=== PATIENT | female | born 1985 | race Caucasian/White ===

== ENCOUNTER → 2023-02-18 15:21 | Outpatient (BNVA) | payer BC, SELFPAY | PROVIDERS: Visit Provider Physician Assistant Surgical ==

== ENCOUNTER 2023-03-25 08:19 | Outpatient (AMB) | payer BC, SELFPAY ==
--- NOTE | 2023-03-24 19:57 | MHC.OFFVISWM ---
Intake VS Expanded 03/24/23 20:00 Height 5 ft 3 in Weight 242 lb 6 oz BMI 42.9 Body Fat % 46.5 Body Fat Mass 112.6 Fat Free Mass 92.8 Visceral Fat Rating 13 Body Water Mass 92.8 Basal Metabolic Rate/Score 1,846 Intake Visit Reasons: TV [employer] [facility] BMI 42.9 Allergies No Known Allergies Allergy (Verified 03/25/23 10:07) Medication List - Last Reconciled 03/25/23 by Oscar Yeh MD benazepril-hydrochlorothiazide 20-25 mg 1 tab PO DAILY folic acid 1 mg PO DAILY methotrexate sodium mg PO sertraline 50 mg PO DAILY HPI TV [employer] SWL BMI 42.9 HPI Details Start time: 10.00am, End time: 10.48am. An additional 15 minutes were used at a different part of the day to complete this note and review patient's records. ?I spent 48 minutes speaking with the patient on the phone plus an additional 15 minutes reviewing and updating records for a total of 63 minutes HPI Comments History of Present Illness Details Previous weight loss efforts: Weight Watchers, counting calories, [place] Wakes up: 5am, Sleeps: 10pm Breakfast: 6.30am (eggs, toast and schaffer) Lunch: 1pm (chicken sandwich with fries) Dinner: 5pm-6pm (chicken, pork chops, steak with pasta) Snacks: 7-8pm (chips or cakes) Exercise: Gym x1/wk Fluids: Coffee (3 cups/day with flavored creamer), tea: none, soda: regular coke (24oz/day), juice: none, ETOH: none PFSH Medical History (Updated 03/25/23 @ 10:10 by Oscar Yeh MD) Rheumatoid arthritis Obstructive sleep apnea on CPAP Anxiety Depression Hypertension Morbid obesity Surgical History (Updated 02/18/23 @ 15:45 by Cailin Rubio CMA) Hx of section Family History (Updated 02/18/23 @ 15:47 by Cailin Rubio CMA) Paternal Uncle Cancer of pancreas Paternal Aunt Breast cancer Social History (Updated 02/18/23 @ 15:48 by Cailin Rubio CMA) Alcohol intake: current Alcohol intake frequency: holidays/special occasions only Alcohol type: wine and other Patient Tobacco Use Status: Never used Tobacco Physical Exam Vital Signs: BMI result Body Mass Index 42.9 Assessment & Plan Assessment & Plan (1) Hypertension: Code(s): I10 - Essential (primary) hypertension (2) Depression: Code(s): F32.A - Depression, unspecified (3) Anxiety: Code(s): F41.9 - Anxiety disorder, unspecified (4) Morbid obesity: Code(s): E66.01 - Morbid (severe) obesity due to excess calories Plan: 1.? Plan for lap sleeve gastrectomy. If diaphragmatic or ventral hernias are present at time of surgery, these will be repaired laparoscopically as well. Risks and complications were discussed in detail including possible conversion to an open procedure, anastomotic leak, bleeding requiring transfusion, small bowel obstruction, , DVT and pulmonary embolism, cardiac, or pulmonary complications, as terminal clerk complications such as anastomotic ulcer, insufficient weight loss and vitamin deficiencies. I emphasized the importance of close follow-up, adherence to instructions and good communication. 2. Nutritional counseling. Start with 2 CELEBRATE REBUILD protein (buy at [facility] [employer]) shakes (ONE scoop EACH in 8oz low fat unsweetened almond milk each) at 6am-8am and 9am-11am, 2 protein bars (CELEBRATE protein bars, buy at [facility] [employer] [facility]) at 12pm-2pm and 3pm-5pm, dinner at 6pm (8 forks of protein and 8 forks of salad/vegetables) AND one more protein bar after dinner at 8pm-10pm. So you do 2 protein shakes, 3 protein bars and one meal per day. Meal to include lean meat (beef, fish, pork, turkey, chicken), or egyptian yogurt, or egg whites, or beans with a salad with olive oil and fruits (berries, pears, apples, kiwi). Avoid salt, breads, potatoes, rice, pasta, desserts. 3. Each shake would be drunk slowly, like coffee in a period of 2 hours. 4. Cut each bar in 4 pieces and eat each piece in 30min ?to make each bar last 2 hours. 5. I emphasized the importance of measuring accurately the food portion and measure it when serving the food in plate 6. The meal portions include 8 full-size forks of meat and 8 full-size forks of salad. You always eat the meat portion but you can replace up to 4 forks for salad/vegetables with rice, potatoes or pasta, or a fruit ?if you like. The less you do it the better weight loss will be. 7. One full-size fork is what it can be scooped on the fork without falling aside and not what can be bit with the fork. Use regular forks like those you find in a typical restaurant. 8.? Please send me weight measurements as soon as possible and then once a week. Always include your diet and exercise plan. 9. Start treadmill with an incline of 2.0 and speed of 3.0. Increase incline by 1 every 3 min to a max incline of 8.0, stay 3min at 8.0 and then return to 2.0 and repeat same steps until calorie goal is met. Goal is to burn 2000 calories per week on exercise, which means either 300 calories daily, or 400 calories 5 days per week, or 500 calories 4 days per week, or 650 calories 3 days per week. 10. Alternatively purchase a stationary bike, elliptical or treadmill at home that can track calories. Let me know if you do so I can give you an exercise plan. 11.?It is important of avoiding and for at least 18 months postoperatively and has been discussed at the infosession. 12. Goal is to lose at least 1.5-2lbs per week 13. Goal to lose 10% of your weight before surgery, which is about 24lbs. Ultimate weight goal: 218lbs before surgery 14. Please follow the diet plan exactly without any change. If you don't like something about the plan or you feel hungry you need to communicate with me so I can help you revise the plan. You should not change the plan yourself. (5) Obstructive sleep apnea on CPAP: Code(s): G47.33 - Obstructive sleep apnea (adult) (pediatric) (6) Rheumatoid arthritis: Code(s): M06.9 - Rheumatoid arthritis, unspecified Orders: Orders IRON PROFILE 03/24/23 E66.01 - Morbid (severe) obesity due to excess calories Zinc 03/24/23 E66.01 - Morbid (severe) obesity due to excess calories Vitamin A 03/24/23 E66.01 - Morbid (severe) obesity due to excess calories Ferritin 03/24/23 E66.01 - Morbid (severe) obesity due to excess calories TSH reflex Free T4 03/24/23 E66. - Morbid (severe) obesity due to excess calories Vitamin D 25-OH Total 03/24/23 E66.01 - Morbid (severe) obesity due to excess calories Hemoglobin A1c 03/24/23 E66. - Morbid (severe) obesity due to excess calories ECG 12 lead EKG 03/24/23 E66. - Morbid (severe) obesity due to excess calories FL upper GI w air 03/24/23 E66.01 - Morbid (severe) obesity due to excess calories Insulin 03/24/23 E66. - Morbid (severe) obesity due to excess calories Lipid Panel 03/24/23 E66. - Morbid (severe) obesity due to excess calories Complete Blood Count Auto Diff 03/24/23 E66. - Morbid (severe) obesity due to excess calories Vitamin B12 and Folate 03/24/23 E66. - Morbid (severe) obesity due to excess calories Comprehensive Met. Panel 03/24/23 E66. - Morbid (severe) obesity due to excess calories Vitamin B1 03/24/23 E66. - Morbid (severe) obesity due to excess calories C Reactive Protein 03/24/23 E66.01 - Morbid (severe) obesity due to excess calories PTHI 03/24/23 E66.01 - Morbid (severe) obesity due to excess calories H Pylori Breath Test 03/24/23 E66. - Morbid (severe) obesity due to excess calories US abdomen comp w elastography 03/24/23 E66.01 - Morbid (severe) obesity due to excess calories XR chest 2V 03/24/23 E66.01 - Morbid (severe) obesity due to excess calories Referrals Behavioral Health Referral E66.01 - Morbid (severe) obesity due to excess calories Nutrition/Dietitian Referral E66.01 - Morbid (severe) obesity due to excess calories Telehealth Telehealth Location of provider rendering services: practice address Location of patient: address on file Patient Identification confirmed using: Name, : Yes Telehealth method: voice only Patient verbally consented to treatment: Yes Patient verbally consented to billing insurance company: Yes Patient informed of any privacy concerns related to visit: Yes Minutes spent on Phone/Video with Pt.: 63 Coding Level of Care Code Tele New Pt Level 5 (56168) Diagnoses Hypertension I10 Depression F32.A Anxiety F41.9 Morbid obesity E66.01 Obstructive sleep apnea on CPAP G47.33 Rheumatoid arthritis M06.9 Time Spent (min) 63
[2023-03-24 20:00] VITALS: BMI 42.9
== END 2023-03-25 10:49 | disposition home or self-care (01) ==
LOC: HO.HBS 08:19
PROVIDERS: PCP Nurse Practitioner Family; Visit Provider Surgery
DX: E66.01 Morbid (severe) obesity due to excess calories (principal); Z68.42 Body mass index [BMI] 45.0-49.9, adult; F32.A Depression, unspecified; F41.9 Anxiety disorder, unspecified; G47.33 Obstructive sleep apnea (adult) (pediatric); M06.9 Rheumatoid arthritis, unspecified
CPT/HCPCS: 99443

== ENCOUNTER → 2023-03-25 08:19 | Outpatient (BNVA) | payer BC, SELFPAY | PROVIDERS: PCP Nurse Practitioner Family; Visit Provider Surgery | DX: E66.01 Morbid (severe) obesity due to excess calories (principal) ==

== ENCOUNTER 2023-03-29 08:08 | Outpatient (REF) | payer BC, MEDICAID, SELFPAY ==
--- NOTE | ~2023-03-29 | XR_ITS ---
EXAMINATION: XR CHEST CLINICAL INFORMATION: Morbid obesity COMPARISON: None available. TECHNIQUE: 2 views of the chest were obtained. FINDINGS: No focal consolidation. No pneumothorax. Trachea is midline. Cardiac mediastinal silhouette is not enlarged.. Osseous structures are intact. Soft tissues are unremarkable. XR/XR chest 2V IMPRESSION: No acute cardiopulmonary process.
[2023-03-29 08:45] LABS: MANUAL DIFF FLAG NO
[2023-03-29 09:26] LABS: Basophils Percent Auto 0.6 % (0-2); Eosinophils Absolute Auto 0.1 X10*3/uL (0.0-0.4); Eosinophils Percent Auto 1.6 % (0-4); Hematocrit 40.1 % (37.0-47.0); Hemoglobin 12.6 g/dl (12.0-16.0); Imm Gran Abs Auto 0.02 X10*3/uL (0.00-0.03); Imm Gran Pct Auto 0.3 % (0.0-0.4); Lymphocytes Absolute Auto 1.4 X10*3/uL (1.2-4.9); Lymphocytes Percent Auto 21.9 % (20-40); Mean Corpuscular HGB Conc 31.4 g/dl (31.0-35.0); Mean Corpuscular Hemoglobin 26.7 pg (27.0-33.0); Mean Platelet Volume 9.6 fL (9.4-12.3); Monocytes Absolute Auto 0.4 X10*3/uL (0.1-1.2); Monocytes Percent Auto 5.9 % (2-11); Neutrophils Absolute Auto 4.3 x10*3/uL (2.0-8.3); Neutrophils Percent Auto 69.7 % (45-73); Platelet Count 345 X10*3/uL (160-400); Red Blood Count 4.72 X10*6/uL (4.20-5.50); White Blood Count 6.2 X10*3/uL (4.8-10.8)
[2023-03-29 10:23] LABS: Estimated Average Glucose 111 mg/dL; Hemoglobin A1c % 5.5 % (<6.0)
[2023-03-29 10:27] LABS: Folate > 20.0 ng/mL (> or = 4.0); Vitamin B12 639 pg/mL (200-900)
[2023-03-29 10:29] LABS: Alanine Aminotransferase 65 U/L (0-31); Albumin Level 4.1 g/dL (3.5-5.0); Alkaline Phosphatase 99 U/L (39-117); Aspartate Amino Transferase 31 U/L (5-31); Bilirubin Total 0.2 mg/dL (0.0-1.0); Blood Urea Nitrogen 13 mg/dL (9-16); C Reactive Protein 2.64 mg/dL (< or = 0.50); Calcium 9.4 mg/dL (8.4-10.2); Carbon Dioxide 24 mmol/L (22-29); Chloride 109 mmol/L (96-108); Cholesterol 180 mg/dL (<200); Estimated Glomerular Filt Rate > 60; Glucose Random 83 mg/dL (60-115); HDL Cholesterol 49 mg/dL (>40); Iron 42 mcg/dL (30-160); LDL Cholesterol Calculated 117 mg/dL (<100); Percent Iron Saturation 13 % (15-50); Potassium 3.9 mmol/L (3.3-5.1); Sodium 142 mmol/L (135-145); Total Iron Binding Capacity 314 mcg/dL (228-428); Total Protein 7.5 g/dL (6.5-8.0); Triglycerides 71 mg/dL (<150); Unsaturated Iron Binding 272 ug/dL
[2023-03-29 10:41] LABS: Anion Gap 13 (12-20)
[2023-03-29 10:53] LABS: Ferritin 73 ng/mL (10-122); TSH reflex Free T4 1.22 uIU/mL (0.32-4.0); Vitamin D 25-OH Total 32.6 ng/mL (>30)
[2023-03-29 10:57] LABS: Insulin 26 uU/mL (2-29)
[2023-03-31 16:33] LABS: Zinc 63 mcg/dL (60-130)
[2023-04-01 14:23] LABS: Calcium (PTHI) 9.4 mg/dL (8.6-10.2); PTHI 37 pg/mL (16-77)
[2023-04-02 00:53] LABS: Vitamin A 41 mcg/dL (38-98)
[2023-04-02 14:24] LABS: Vitamin B1 7 nmol/L (8-30)
== END 2023-03-29 08:09 | disposition home or self-care (01) ==
LOC: HO.XRAY 08:08
PROVIDERS: PCP Nurse Practitioner Family; Visit Provider Surgery
DX: E66.01 Morbid (severe) obesity due to excess calories (principal)
CPT/HCPCS: 36415; 71046; 80053; 80061; 82306; 82607; 82728; 82746; 83036; 83525; 83540; 83970; 84425; 84443; 84590; 84630; 85025; 86140

== ENCOUNTER → 2023-04-01 08:18 | Outpatient (REF) | payer BC, SELFPAY ==
--- NOTE | 2023-04-01 08:22 | ECG_ITS ---
Test Reason : e66.01 Blood Pressure : / mmHG Vent. Rate : 050 BPM Atrial Rate : 050 BPM P-R Int : 158 ms QRS Dur : 082 ms QT Int : 434 ms P-R-T Axes : 017 -08 015 degrees QTc Int : 395 ms Sinus bradycardia Minimal voltage criteria for LVH, may be normal variant ( R in aVL ) Borderline ECG No previous ECGs available Referred By: Oscar Yeh Electronically Signed By:DACIA CALIX MD
== END ==
LOC: HO.CARD 08:18
PROVIDERS: Visit Provider Surgery
DX: E66.01 Morbid (severe) obesity due to excess calories (principal)
CPT/HCPCS: 93005

== ENCOUNTER → 2023-04-09 09:49 | Outpatient (BNVA) | payer BC, SELFPAY | PROVIDERS: PCP Nurse Practitioner Family; Visit Provider Physician Assistant Surgical | DX: Z11.0 Encounter for screening for intestinal infectious diseases (principal) | CPT/HCPCS: 99211 ==

== ENCOUNTER 2023-04-09 14:48 | Outpatient (REF) | payer BC, MEDICAID, SELFPAY ==
[2023-04-10 15:30] LABS: H Pylori Breath Test Positive (Negative)
== END 2023-04-09 14:49 | disposition home or self-care (01) ==
LOC: HO.LNP 14:48
PROVIDERS: Visit Provider Surgery
DX: E66.01 Morbid (severe) obesity due to excess calories (principal)
CPT/HCPCS: 83013

== ENCOUNTER 2023-04-12 08:03 | Outpatient (AMB) | payer BC, SELFPAY ==
--- NOTE | 2023-04-12 09:34 | A.OFFVIS_ITS ---
Intake VS Expanded 04/12/23 09:43 Height 5 ft 3 in Weight 234 lb 8 oz BMI 41.5 Body Fat % 52.3 Body Fat Mass 122.8 Fat Free Mass 112 Visceral Fat Rating 15.8 Body Water % 37.1 Body Water Mass 87.1 Basal Metabolic Rate/Score 1,698 Intake Visit Reasons: TV Follow Up SWL - 1ST Allergies No Known Allergies Allergy (Verified 03/25/23 10:07) HPI TV Follow Up SWL - 1ST HPI Details Start time: 9.22am, End time: 9.52am ?I spent 25 minutes speaking with the patient on the phone plus an additional 5 minutes reviewing and updating records for a total of 30 minutes HPI Comments History of Present Illness Details Overall weight loss: 7.6lbs, or 3.14% TBWL 2 Celebrate Rebuild protein shakes (1 sc oop in 8oz almond milk), 3 Celebrate protein bars and a meal (8 forks of protein and 8 forks of salad or vegetables) Exercise: Gym x5/week for 400 calories doing treadmill (speed: 3.0mph, incline 2-8) PFSH Medical History (Updated 04/12/23 @ 09:30 by Oscar Yeh MD) Rheumatoid arthritis Obstructive sleep apnea on CPAP Anxiety Depression Hypertension Morbid obesity Surgical History (Updated 02/18/23 @ 15:45 by Cailin Rubio CMA) Hx of section Family History (Updated 02/18/23 @ 15:47 by Cailin Rubio CMA) Paternal Uncle Cancer of pancreas Paternal Aunt Breast cancer Social History (Updated 02/18/23 @ 15:48 by Cailin Rubio CMA) Alcohol intake: current Alcohol intake frequency: holidays/special occasions only Alcohol type: wine and other Patient Tobacco Use Status: Never used Tobacco Assessment & Plan Assessment & Plan (1) Morbid obesity: Code(s): E66.01 - Morbid (severe) obesity due to excess calories Plan: 1. Change nutritional plan to one Celebrate Rebuild shake (HALF scoop in 8oz almond milk), one Celebrate Rebuild protein shakes (1 scoop in 8oz almond milk), 3 Celebrate protein bars and a meal (8 forks of protein and 8 forks of salad or vegetables) 2. Exercise: Continue Gym x5/week for 400 calories doing treadmill (speed: 3.0mph, increase incline 4-10) 3. Continue to send me weight measurements weekly on Mondays 4. To be scheduled for EGD due to history of H pylori infection. The possibility of biopsies was discussed. Patient needs to avoid use of NSAIDs and aspirin for 1 week prior to EGD. Risks of perforation and? bleeding was discussed with the patient. This will be an outpatient procedure with IV sedation. Medications: New thiamine HCl (vitamin B1) 100 mg PO DAILY 30 tabs 2RF E51.9 - Thiamine deficiency, unspecified Telehealth Telehealth Location of provider rendering services: practice address Location of patient: address on file Patient Identification confirmed using: Name, : Yes Telehealth method: voice only Patient verbally consented to treatment: Yes Patient verbally consented to billing insurance company: Yes Patient informed of any privacy concerns related to visit: Yes Coding Level of Care Code Tele Est Pt Level 4 (24924) Diagnoses Morbid obesity E66.01 Time Spent (min) 30
[2023-04-12 09:43] VITALS: BMI 41.5
== END 2023-04-12 09:53 | disposition home or self-care (01) ==
LOC: HO.HBS 08:04
PROVIDERS: PCP Nurse Practitioner Family; Visit Provider Surgery
DX: E66.01 Morbid (severe) obesity due to excess calories (principal); Z68.41 Body mass index [BMI] 40.0-44.9, adult
CPT/HCPCS: 99443

== ENCOUNTER → 2023-04-12 08:03 | Outpatient (BNVA) | payer BC, SELFPAY | PROVIDERS: PCP Nurse Practitioner Family; Visit Provider Surgery ==

== ENCOUNTER 2023-04-15 10:05 | Outpatient (AMB) | payer BC, SELFPAY ==
--- NOTE | 2023-04-15 10:24 | MHC.AMNUTRGE ---
Intake Intake Visit Reasons: (OV) Initial Nutrition [facility] Allergies No Known Allergies Allergy (Verified 03/25/23 10:07) HPI Nutrition Presentation Reason for consult elevated BMI Diet Assmnt Details Celebrate rebuild and protein bars plan from surgeon- likes them dinner mainly has protein and veg and 2 kids, 15 and 10 , trying to be a good role model for her kids Exercise: 5x per week , takes her son with her 3x per week. treadmill routine from surgeon SWL online classes: completed, reviewed and scored well Dietary counseling reduction Who buys your food self Who prepares/cooks your food self Meal frequency regular: breakfast (3 eggs, 4 slices schaffer), lunch (fast food) and dinner and irregular: snacks (at night, sweets, chips) Lifestyle Eating out 4 or more times/week Food frequency Dairy: daily, Fruit: occasionally, Vegetables: occasionally, Grains/pasta/breads/cereal (carbs): daily, Meats/poultry/fish (protein): daily (tuna, minimal seafood ), Meat substitutes/nuts/seeds/legumes: daily, Processed foods/meats: several times weekly, Restaurants/fast foods: daily, Desserts/sweets: daily, Water: daily, Soda: daily, Juice: never and Coffee: daily Diagnosis Nutrition problem #1 overweight/obesity As related to (etiology) #1 excess energy intake and physical inactivity As evidenced by (sign/symptom) #1 high BMI Monitoring/Goals Nutrition problem monitoring total energy intake, level of knowledge/skill, total PRO intake and weight Outcome progress progressing Learning/Education Readiness to learn excellent Stages of change action Educational materials provided Yes Most Recent Diabetes Results: Cholesterol 180 mg/dL (<200) 03/29/23 HDL Cholesterol 49 mg/dL (>40) 03/29/23 Triglycerides 71 mg/dL (<150) 03/29/23 Creatinine 0.75 mg/dL (0.5-1.4) 03/29/23 Blood Urea Nitrogen 13 mg/dL (9-16) 03/29/23 Sodium 142 mmol/L (135-145) 03/29/23 Potassium 3.9 mmol/L (3.3-5.1) 03/29/23 Chloride 109 mmol/L (96-108) H 03/29/23 Carbon Dioxide 24 mmol/L (22-29) 03/29/23 Calcium 9.4 mg/dL (8.4-10.2) 03/29/23 AST 31 U/L (5-31) 03/29/23 ALT 65 U/L (0-31) H 03/29/23 Total Protein 7.5 g/dL (6.5-8.0) 03/29/23 Albumin 4.1 g/dL (3.5-5.0) 03/29/23 PFSH Medical History (Updated 04/12/23 @ 09:30 by Oscar Yeh MD) Rheumatoid arthritis Obstructive sleep apnea on CPAP Anxiety Depression Hypertension Morbid obesity Surgical History (Updated 02/18/23 @ 15:45 by Cailin Rubio CMA) Hx of section Family History (Updated 02/18/23 @ 15:47 by Cailin Rubio CMA) Paternal Uncle Cancer of pancreas Paternal Aunt Breast cancer Social History (Updated 02/18/23 @ 15:48 by Cailin Rubio CMA) Alcohol intake: current Alcohol intake frequency: holidays/special occasions only Alcohol type: wine and other Patient Tobacco Use Status: Never used Tobacco Assessment & Plan Assessment & Plan (1) Morbid obesity: Code(s): E66.01 - Morbid (severe) obesity due to excess calories Plan: pt is cleared from a nutrition standpoint Patient Instructions: Patient is cleared from a nutrition standpoint for bariatric surgery. Educational requirements have been completed. Reviewed vitamin supplementation and commitment to protein shake for several months post surgery. Encouraged communication with office as needed Coding Level of Care Code Nutr Indiv Intake (78969) Diagnoses Morbid obesity E66.01 Time Spent (min) 35
== END 2023-04-15 11:04 | disposition home or self-care (01) ==
PROVIDERS: PCP Nurse Practitioner Family; Visit Provider Dietitian, Registered
DX: E66.01 Morbid (severe) obesity due to excess calories (principal)

== ENCOUNTER → 2023-04-15 10:05 | Outpatient (BNVA) | payer BC, SELFPAY | PROVIDERS: PCP Nurse Practitioner Family; Visit Provider Dietitian, Registered | DX: E66.01 Morbid (severe) obesity due to excess calories (principal); Z71.3 Dietary counseling and surveillance | CPT/HCPCS: 97802 ==

== ENCOUNTER 2023-04-30 09:48 | Outpatient (REF) | payer BC, MEDICAID, SELFPAY ==
--- NOTE | ~2023-04-30 | US_ITS ---
EXAMINATION: US COMPLETE ABDOMEN WITH LIVER ELASTOGRAPHY CLINICAL INFORMATION: Obesity. COMPARISON: None available. TECHNIQUE: Real-time imaging of the abdominal viscera. Noninvasive ultrasound liver fibrosis assessment is performed using [place] ElastPQ point quantification shear wave elastography (2D-SWE) with a C5-2 MHz transducer. Multiple elastography samples are obtained. FINDINGS: PANCREAS: Normal. The visualized pancreatic head and body are normal in appearance. The remainder of the pancreas is obscured from visualization by the overlying bowel gas. ABDOMINAL AORTA: The proximal and distal aortic segments are normal in caliber. The mid segment is obscured by overlapping bowel gas. INFERIOR VENA CAVA: Visualized portions are normal. LIVER: The liver demonstrates normal contour and increased echogenicity. No focal lesion or intrahepatic biliary duct dilatation. The right lobe measures 19.4 cm in length. The left lobe measures 9.1 cm in length. Portal flow is towards the liver (hepatopetal). Shear wave liver elastography median stiffness is 1.83 m/s (reference: normal median stiffness is 1.3 m/s or less). IQR/median stiffness to assess sampling precision is 0.10 (reference: good quality data set is IQR/median stiffness of 0.15 or less). GALLBLADDER: Normal. The gallbladder is partially contracted, without evidence of stones, sludge, polyps, wall thickening or pericholecystic fluid. COMMON BILE DUCT: Normal in caliber measuring 0.5 cm in diameter. RIGHT KIDNEY: Normal. No hydronephrosis. No renal calculi or focal parenchymal lesions. The kidney measures 11.2 cm in maximum dimension. LEFT KIDNEY: Normal. No hydronephrosis. No renal calculi or focal parenchymal lesions. The kidney measures 11.2 cm in maximum dimension. SPLEEN: Normal. The spleen measures 12.7 cm in maximum dimension. FREE FLUID: None. US/US abdomen comp w elastography IMPRESSION: 1. There is generalized increase in hepatic echotexture, consistent with fatty infiltration or hepatocellular disease. Please correlate clinically. No focal hepatic mass or intrahepatic biliary dilatation is seen. 2. Liver elastography: Measurements are suggestive of compensated advanced chronic liver disease but need further test for confirmation. 3. Technically limited ultrasound examination of the pancreas and abdominal aorta. REFERENCE: Society of Radiologists in Ultrasound Liver Stiffness Thresholds (2020): LIVER STIFFNESS THRESHOLDS: *Liver Stiffness equal or less than 1.3 m/s: High probability of being normal. *Liver Stiffness less than 1.7 m/s: In the absence of other known clinical signs, rules out compensated advanced chronic liver disease. *Liver Stiffness 1.7-2.1 m/s: Suggestive of compensated advanced chronic liver disease but need further test for confirmation. *Liver Stiffness over 2.1 m/s: Rules in compensated advanced chronic liver disease. *Liver Stiffness over 2.4 m/s: Suggestive of clinically significant portal hypertension. QUALITY OF DATA SET: *IQR/Median value equal or less than 0.15 implies a quality data set. *IQR/Median value over 0.15 implies a poor quality data set. SIGNIFICANT CHANGE FROM PRIOR EXAM: Significant change if liver stiffness measurement is 10% or greater from prior exam. OTHER CONSIDERATIONS: The stage of liver fibrosis may be overestimated in the setting of acute hepatitis, liver inflammation, elevated liver function tests, hepatic vascular congestion, obstructive cholestasis, non-fasting state, and infiltrative diseases such as amyloidosis and lymphoma. In some patients with NAFLD, the liver stiffness thresholds for compensated advanced chronic liver disease may be lower. In causes other than viral hepatitis and NAFLD, liver stiffness thresholds are not well established.
== END 2023-04-30 09:49 | disposition home or self-care (01) ==
LOC: HO.US 09:48
PROVIDERS: PCP Nurse Practitioner Family; Visit Provider Surgery
DX: E66.01 Morbid (severe) obesity due to excess calories (principal)
CPT/HCPCS: 76705; 76981

== ENCOUNTER 2023-05-10 07:59 | Outpatient (AMB) | payer BC, SELFPAY ==
--- NOTE | 2023-05-10 09:18 | MHC.OFFVISWM ---
Intake VS Expanded 05/10/23 09:28 Height 5 ft 3 in Weight 224 lb 6 oz BMI 39.7 Body Fat % 51.2 Body Fat Mass 114.9 Fat Free Mass 109.6 Visceral Fat Rating 14.8 Body Water % 37.7 Body Water Mass 84.6 Basal Metabolic Rate/Score 1,649 Intake Visit Reasons: TV Follow Up SWL Allergies No Known Allergies Allergy (Verified 03/25/23 10:07) HPI TV Follow Up SWL HPI Details Start time: 9.10am, End time: 9.31am ?I spent 16 minutes speaking with the patient on the phone plus an additional 5 minutes reviewing and updating records for a total of 21 minutes HPI Comments History of Present Illness Details Overall weight loss: 17.8lbs, or 7.34% TBWL Is doing 1 Celebrate Rebuild protein shakes (1/2 scoop each in almond milk), another Celebrate Rebuild protein shake (1 scoop in almond milk), 3 Celebrate protein bars and one meal (8 forks of protein and 8 forks of salad or vegetables) Exercise: is doing treadmill x5/week for 480 calories (incline 4-10, speed: 3mph) [facility] Medical History (Updated 05/10/23 @ 09:24 by Oscar Yeh MD) Rheumatoid arthritis Obstructive sleep apnea on CPAP Anxiety Depression Hypertension Morbid obesity Surgical History (Updated 02/18/23 @ 15:45 by Cailin Rubio CMA) Hx of section Family History (Updated 02/18/23 @ 15:47 by Cailin Rubio CMA) Paternal Uncle Cancer of pancreas Paternal Aunt Breast cancer Social History (Updated 02/18/23 @ 15:48 by Cailin Rubio CMA) Alcohol intake: current Alcohol intake frequency: holidays/special occasions only Alcohol type: wine and other Patient Tobacco Use Status: Never used Tobacco Assessment & Plan Assessment & Plan (1) Obesity: Code(s): E66.9 - Obesity, unspecified Qualifiers: Obesity type: due to excess calories Obesity classification: adult class 2 (BMI 35 - 39.9) Serious obesity comorbidity presence: with serious comorbidity Body mass index: BMI 39.0-39.9 Qualified Code(s): E66.01 - Morbid (severe) obesity due to excess calories; Z68.39 - Body mass index [BMI] 39.0-39.9, adult Plan: 1. Change nutritional plan to 2 Celebrate Rebuild protein shakes (1/2 scoop each in almond milk), 3 Celebrate protein bars and one meal (8 forks of protein and 8 forks of salad or vegetables) 2. Exercise: continue treadmill x5/week for 480 calories (increase incline to 5-11, speed: 3mph) 3. Continue to send me weight measurements weekly on Mondays Telehealth Telehealth Location of provider rendering services: practice address Location of patient: address on file Patient Identification confirmed using: Name, : Yes Telehealth method: voice only Patient verbally consented to treatment: Yes Patient verbally consented to billing insurance company: Yes Patient informed of any privacy concerns related to visit: Yes Minutes spent on Phone/Video with Pt.: 21 Coding Level of Care Code Tele Est Pt Level 3 (81240) Diagnoses Class 2 severe obesity due to excess calories with serious comorbidity and body mass index (BMI) of 39.0 to 39.9 in adult E66.01; Z68.39 Obesity type: due to excess calories Obesity classification: adult class 2 (BMI 35 - 39.9) Serious obesity comorbidity presence: with serious comorbidity Body mass index: BMI 39.0-39.9 Time Spent (min) 21
[2023-05-10 09:28] VITALS: BMI 39.7
== END 2023-05-10 09:32 | disposition home or self-care (01) ==
LOC: HO.HBS 07:59
PROVIDERS: PCP Nurse Practitioner Family; Visit Provider Surgery
DX: E66.01 Morbid (severe) obesity due to excess calories (principal); Z68.39 Body mass index [BMI] 39.0-39.9, adult
CPT/HCPCS: 99443

== ENCOUNTER → 2023-05-10 07:59 | Outpatient (BNVA) | payer BC, SELFPAY | PROVIDERS: PCP Nurse Practitioner Family; Visit Provider Surgery ==

== ENCOUNTER 2023-05-13 10:26 | Outpatient (AMB) | payer BC, SELFPAY ==
--- NOTE | 2023-05-13 10:01 | MHC.WMTHER ---
Intake Intake Visit Reasons: VIDEO Intake Allergies No Known Allergies Allergy (Verified 03/25/23 10:07) [facility] Medical History (Updated 05/13/23 @ 12:48 by Celina Nj) Rheumatoid arthritis Obstructive sleep apnea on CPAP Anxiety Depression Hypertension Morbid obesity Surgical History (Updated 02/18/23 @ 15:45 by Cailin Rubio CMA) Hx of section Family History (Updated 02/18/23 @ 15:47 by Cailin Rubio CMA) Paternal Uncle Cancer of pancreas Paternal Aunt Breast cancer Social History (Updated 02/18/23 @ 15:48 by Cailin Rubio CMA) Alcohol intake: current Alcohol intake frequency: holidays/special occasions only Alcohol type: wine and other Patient Tobacco Use Status: Never used Tobacco Behavioral Health Assessment Weight Management Therapy Therapy Notes Details Pt is looking to have weight loss surgery to help improve her health and quality of life. She is currently not in therapy and only was briefly due to separation from her . Also once session with therapist at another weight loss program in 2021. At that time she decided she did not want the surgery. She denied any other mental health history. Pt denied any history of drug or alcohol problems. Presenting Concerns Referral Source provider Reason for referral weight loss surgery evaluation Precipitating Event obesity Living Situation Current Living Situation Own At risk of losing current housing? No Satisfied with current living situation? Yes Comments Pt lives with her and two children ages 16, and 11. Food/Weight/Diet Expectations of change weight loss and maintenance History/Relationship with food Pt reported that she often uses food as an emotional coping mechanism. Currently is using a journal to wrote down her thoughts instead of turning to food. She would often eat tacos, pizza, anything with cheese, fast food, soda drinker, would often eat large quantities even when not hungry, loss of control, feelings of guilt, also eats fast and alone. History/Relationship with weight Pt reported she has been struggling with her weight for most of her life. She was around 260lbs at her heaviest after she had her son. She was around 180lbs about 12 years ago. After stressful situation she stopped doing weight watchers. History/Relationship with dieting [facility] and lost 60lbs or so. counting calories, [facility] and was diagnosed with Binge Eating Disorder Binge Eating Do you frequently eat large amounts of food in short periods of time, not feeling physically hungry? Yes Do you feel out of control when you eat a large amount of food in a short period of time? Yes Do you eat large amounts of food rapidly and typically alone? Yes Night Eating Do you wake up at least once during the night to eat? No If you wake up in the night, do you find that it is necessary to eat something in order to fall back asleep? No Do you have little or no appetite in the morning and feel very hungry in the evening, often overeating between dinner and when you go to bed? No Social History Family history and relationship Patient denied any history of trauma. She stated that her mother is overweight and was always dieting. Recently diagnosed with diabetes. Parental/Familial chainer obligations two children Developmental history and status no issues known Social support , mom, sister Cultural/Ethnic information Legal Involvement and History Current or historical involvement with the legal system? none Education Highest grade completed 11th grade, GED, and [employer] school Preferred learning style Auditory, Verbal, Written, Learn by doing and Visual Currently enrolled in educational program? No Interested in further educational program? 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 No Meaningful activities gym 5x's a week, Financial Situation Describe current financial situation Comfortable Financial assistance? None Service Service? No Mental Health and Addiction Treatment Current/Past substance abuse? No Current/Past addictive behavior concerns? No Medical and Physical Health Summary Physical exam in the last year? Yes Pain Screening Current pain? No Pain in the last few months? No Medications Is the patient compliant with medications? Yes Does the patient have Richardson Guardian in place? Not applicable Does the patient use complimentary health approaches? No Trauma/Abuse History History of trauma? No Questionnaires PHQ-9 Over the last 2 weeks, how often have you been bothered by any of the following problems? 1. Little interest or pleasure in doing things: not at all 2. Feeling down, depressed, or hopeless: not at all 3. Trouble falling or staying asleep, or sleeping too much: not at all 4. Feeling tired or having little energy: nearly every day 5. Poor appetite or overeating: nearly every day 6. Feeling bad about yourself - or that you are a failure or have let yourself or your family down: several days 7. Trouble concentrating on things, such as reading the newspaper or watching television: not at all 8. Moving or speaking so slowly that other people could have noticed. Or the opposite - being so fidgety or restless that you have been moving around a lot more than usual: not at all 9. Thoughts that you would be better off or of hurting yourself in some way: not at all Total score: 7 Source: Developed by Drs. Brenton Santillan, Fidelia Abernathy, Korey Campuzano and colleagues, with an educational gabriel from [employer]. Binge Eating Scale Group 1 A. I don't feel self-conscious about my wt. or body size when I'm with others. B. I feel concerned about how I look to others, but it normally does not make me fell disappointed with myself C. I do get self-conscious about my appearance and wt. which makes me feel disappointed in myself. D. I feel very self-conscious about my wt. and frequently I feel intense shame and disgust for myself. I try to avoid social contacts because of my self-consciousness. Response Group 1: C Group 2 A. I don't have any difficulty eating slowly in the proper manner. B. Although I seem to gobble down foods, I don't end up feeling stuffed because of eating to much. C. At times, I tend to eat quickly and then, I feel uncomfortably full afterwards. D. I have the habit of bolting down my food, without really chewing it. When this happens I usually feel uncomfortably stuffed because I've eaten to much. Response Group 2: C Group 3 A. I feel capable to control my eating urges when I want to. B. I feel like I have failed to control my eating more than the average person. C. I feel utterly helpless when it comes to feeling in control of my eating urges. D. Because I feel so helpless about controlling my eating I have become very desperate about trying to get control. Response Group 3: C Group 4 A. I don't have the habit of eating when I'm bored. B. I sometimes eat when I'm bored, but often I'm able to get busy and get my mind off food. C. I have a regular habit of eating when I'm bored, but occasionally, I can use some other activity to get my mind off eating. D. I have a strong habit of eating when I'm bored. Nothing seems to help me breath the habit. Response Group 4: D Group 5 A. I'm usually physically hungry when I eat something. B. Occasionally, I eat something on impulse even though I really am not hungry. C. I have the regular habit of eating foods, that I might not really enjoy, to satisfy a hungry feeling even though physically, I don't need the food. D. Although I'm not physically hungry, I get a hungry feeling in my mouth that only seems to be satisfied when I eat a food, like sandwich, that fills my mouth. Sometimes, when I eat the food to satisfy my mouth hunger, I then spit the food out so I won't gain weight. Response Group 5: B Group 6 A. I don't feel any guilt or self-hate after I overeat. B. After I overeat, occasionally I feel guilt or self-hate. C. Almost all the time I experience strong guilt or self-hate after I overeat. Response Group 6: C Group 7 A. I don't lose total control of my eating when dieting even after periods when I overeat. B. Sometimes when I eat a forbidden food on a diet, I feel like I blew it and eat even more. C. Frequently, I have the habit of saying to myself, I've blown it now, why not go all the way, when I overeat on a diet. When that happens I eat more. D. I have a regular habit of starting a strict diets for myself but I break the diets by going on an eating binge. My life seems to be either a feast or famine. Response Group 7: C Group 8 A. I rarely eat so much food that I feel uncomfortably stuffed afterwards. B. Usually about once a month, I each such a quantity of food, I end up feeling very stuffed. C. I have regular periods during the month when I eat large amounts of food, either at mealtime or at snacks. D. I eat so much food that I regularly feel quite uncomfortable after eating and sometimes a bit nauseous. Response Group 8: C Group 9 A. My level of calorie intake does not go up very high or go down very low on a regular basis. B. Sometimes after I overeat, I will try to reduce my caloric intake to almost nothing to compensate for the excess calories I've eaten. C. I have a regular habit of overeating during the night. It seems that my routine is not to be hungry in the morning but overeat in the evening. D. In my adult years, I have had week-long periods where I practically starve myself. This follows periods when I overeat. It seems I live a life of either feast or famine. Response Group 9: C Group 10 A. I usually am able to stop eating when I want to. I know when enough is enough. B. Every so often, I experience a compulsion to eat which I can't seem to control. C. Frequently, I experience strong urges to eat which I seem unable to control, but at other times I can control my eating urges. D. I feel incapable of controlling urges to eat. I have a fear of not being able to stop eating voluntarily. Response Group 10: C Group 11 A. I don't have any problem stopping eating when I feel full. B. I usually can stop eating when I feel full but occasionally overeat leaving me feeling uncomfortably stuffed. C. I have a problem stopping eating once I start and usually I feel uncomfortably stuffed after I eat a meal. D. Because I have a problem not being able to stop eating when I want, I sometimes have to induce vomiting to relieve my stuffed feeling. Response Group 11: B Group 12 A. I seem to eat just as much when I'm with others, Family social gatherings as when I'm by myself. B. Sometimes, when I'm with other persons, I don't eat as much as I want to eat because I'm self-conscious about my eating. C. Frequently, I eat only a small amount of food when others are present, because I'm very embarrassed about my eating. D. I feel so ashamed about overeating that I pick times to overeat when I know no one will see me. I feel like a closet eater. Response Group 12: A Group 13 A. I eat three meals a day with only an occasional between meal snack. B. I eat 3 meals a day, but I also normally snack between meals. C. When I am snacking heavily, I get in the habit of skipping regular meals. D. There are regular periods when I seem to be continually eating, with no planned meals. Response Group 13: D Group 14 A. I don't think much about trying to control unwanted eating urges. B. At least some of the time, I feel my thoughts are pre-occupied with trying to control my eating urges. C. I feel that frequently I spend much time thinking about how much I ate or about trying not to eat anymore. D. It seems to me that most of my waking hours are pre-occupied by thoughts about eating or not eating. I feel like I'm constantly struggling not to eat. Response Group 14: C Group 15 A. I don't think about food a great deal. B. I have strong craving for food but they last only for brief periods of time. C. I have days when I can't seem to think about anything else but food. D. Most of my days seem to be pre-occupied with thoughts about food. I feel like I live to eat. Response Group 15: C Group 16 A. I usually know whether or not I'm physically hungry. I take the right portion of food to satisfy me. B. Occasionally, I feel uncertain about knowing whether or not I'm physically hungry. A these times it's hard to know how much food I should take to satisfy me. C. Even though I might know how many calories I should eat, I don't have any idea what is a normal amount of food for me. 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 She had one appointment in another weight loss program where she was told she has binge eating. Patient did report binge eating tendencies, believe that it may be out of habit of responding to stress in that way and repressing her emotions. Psychoeducation was offered as well as another appointment. She is cleared for surgery and will be seen again. Telehealth Telehealth Location of provider rendering services: other Location of patient: address on file Patient Identification confirmed using: Name, : Yes Telehealth method: voice only Patient verbally consented to treatment: Yes Patient verbally consented to billing insurance company: Yes Patient informed of any privacy concerns related to visit: Yes Minutes spent on Phone/Video with Pt.: 50 Coding Level of Care Code Tele Psy Diag Eval (41901) Diagnoses Unspecified nonpsychotic mental disorder F48.9 Morbid obesity E66.01 Time Spent (min) 50
== END 2023-05-13 12:43 | disposition home or self-care (01) ==
LOC: HO.HBST 10:26
PROVIDERS: PCP Nurse Practitioner Family; Visit Provider Counselor Mental Health
DX: F48.9 Nonpsychotic mental disorder, unspecified (principal); E66.01 Morbid (severe) obesity due to excess calories
CPT/HCPCS: 90791

== ENCOUNTER → 2023-05-13 10:26 | Outpatient (BNVA) | payer BC, SELFPAY | PROVIDERS: PCP Nurse Practitioner Family; Visit Provider Counselor Mental Health ==

== ENCOUNTER 2023-05-15 11:03 | Day surgery (SDC) | payer BC, MEDICAID, SELFPAY ==
--- NOTE | 2023-05-10 23:45 | MHC.SHP ---
Pre-Procedural Eval Section A Date of Service: 05/10/23 The patient is an INPATIENT: No The History & Physical has been completed within 30 days and I have reviewed it.: Yes Section B Chief Complaint: Morbid (severe) obesity due to excess calories Details of Present Illness: GERD Relevant Family History (Specify if Yes): No Relevant Social History: None Present Medications: None Medical History: No relevant PMH History of Previous Operations: No relevant previous surgery Allergies: Allergies Allergy/AdvReac Type Severity Reaction Status Date / Time No Known Allergies Allergy Verified 03/25/23 10:07 Review of Systems Sugical H&P ROS: Negative: Constitution, Cardiovascular, Respiratory, Neurological, Psychiatric, Hem-Onc, Allergic/Immunologic, Genitourinary, Musculoskeletal, Integumentary, Endocrine and Eyes/Ears/Nose/Throat and Yes, Specify: Gastrointestinal (GERD) Exam Surgical H&P Exam: Normal: HEENT, Normal: Heart, Normal: Lungs, Normal: Extremities, Normal: Abdomen, Normal: Skin and Normal: Neurological Plan Diagnosis/Plan: Unchanged (EGD to assess for esophagitis. Risks for perforation and bleeding were discussed with patient. She is in agreement with the plan) I have reviewed the history and physical and performed a pertinent physical examination on my patient. No changes have occurred unless specified. Time Spent With Patient Time: Total time managing care of this patient today ____ minutes.
--- NOTE | 2023-05-14 10:13 | HO.ANESPROP2 ---
Documented by User: Julita Devine NP 05/14/23 10:15 HPI - Anesthesia Eval Consult details Narrative: 37yo F for Upper Endoscopy PMFSH Active Problems Active Problems: All Active Problems (Updated 05/13/23 @ 12:48 by Celina Nj) Unspecified nonpsychotic mental disorder (Acute) Obesity (Acute) Vitamin B1 deficiency (Acute) H. pylori infection (Acute) Rheumatoid arthritis (Acute) Obstructive sleep apnea on CPAP (Acute) Anxiety (Acute) Depression (Acute) Hypertension (Acute) Morbid obesity (Acute) Past Medical History Medical History Rheumatoid arthritis Obstructive sleep apnea on CPAP Anxiety Depression Hypertension Morbid obesity Family History Family History Paternal Uncle Cancer of pancreas Paternal Aunt Breast cancer Surgical History Surgical History Hx of section Social History Social History Alcohol intake: current Alcohol intake frequency: holidays/special occasions only Alcohol type: wine and other Patient Tobacco Use Status: Never used Tobacco Use of substances other than those prescribed or required for medical reasons: Yes Substance Use Type Other:: Edibles Substance Use Frequency: Daily Are you DNR?: No Advance Directives: No Advance Directives Information Provided: Yes Meds Allergies Allergy/AdvReac Type Severity Reaction Status Date / Time No Known Allergies Allergy Verified 03/25/23 10:07 Home Medications Medication Instructions Recorded Confirmed Last Taken Type benazepril 20 1 tab PO DAILY 02/18/23 05/15/23 05/15/23 History mg-hydrochlorothiazide 25 mg tablet folic acid 1 mg tablet 1 mg PO DAILY 02/18/23 05/15/23 05/15/23 History methotrexate sodium 2.5 mg tablet 2.5 mg PO DIRECTED 02/18/23 05/15/23 05/12/23 History sertraline 50 mg tablet 50 mg PO DAILY 02/18/23 05/15/23 05/14/23 History Exam Pertinent Lab Results Pertinent Lab Results: Laboratory Tests 03/29/23 08:42 WBC 6.2 Hgb 12.6 Hct 40.1 Plt Count 345 Sodium 142 Potassium 3.9 Chloride 109 H Carbon Dioxide 24 BUN 13 Creatinine 0.75 Narrative Narrative: EKG 03/2023 Vent. Rate : 050 BPM Atrial Rate : 050 BPM P-R Int : 158 ms QRS Dur : 082 ms QT Int : 434 ms P-R-T Axes : 017 -08 015 degrees QTc Int : 395 ms Sinus bradycardia Minimal voltage criteria for LVH, may be normal variant ( R in aVL ) Borderline ECG No previous ECGs available Assessment and Plan Assessment Anesthesia Assessment: Chart Reviewed Documented by User: Vivi Dean MD 05/15/23 12:11 [facility] Past Medical History Medical History Rheumatoid arthritis Obstructive sleep apnea on CPAP Anxiety Depression Hypertension Morbid obesity Family History Family History Paternal Uncle Cancer of pancreas Paternal Aunt Breast cancer Family history of problems with anesthesia: No Surgical History Surgical History Hx of section History of Problems with Anesthesia: No Social History Social History Alcohol intake: current Alcohol intake frequency: holidays/special occasions only Alcohol type: wine and other Patient Tobacco Use Status: Never used Tobacco Use of substances other than those prescribed or required for medical reasons: Yes Substance Use Type Other:: Edibles Substance Use Frequency: Daily Are you DNR?: No Advance Directives: No Advance Directives Information Provided: Yes Meds Allergies Allergy/AdvReac Type Severity Reaction Status Date / Time No Known Allergies Allergy Verified 03/25/23 10:07 Home Medications Medication Instructions Recorded Confirmed Last Taken Type benazepril 20 1 tab PO DAILY 02/18/23 05/15/23 05/15/23 History mg-hydrochlorothiazide 25 mg tablet folic acid 1 mg tablet 1 mg PO DAILY 02/18/23 05/15/23 05/15/23 History methotrexate sodium 2.5 mg tablet 2.5 mg PO DIRECTED 02/18/23 05/15/23 05/12/23 History sertraline 50 mg tablet 50 mg PO DAILY 02/18/23 05/15/23 05/14/23 History Exam Airway Mallampati Class: III TM Dist: <=3cm Neck ROM: Full Heart: rrr Lungs: cta Assessment and Plan Assessment Anesthesia Assessment: Anesthesia Plan Discussed Final Anesthetic Review Family History of Problems with Anesthesia: No History of Problems with Anesthesia: No NPO: Yes ASA Class: III Final Preanesthetic Review: No Changes in Pt Med Stat, Meds/Allgs Chart Reviewed, Consent Obtained/Reviewed and Anes Risks/Benef Reviewed Patient Risk: Intermediate Procedure Risk: Low Anesthetic Plan Anesthetic Plan: GA and MAC: Disposition: Standard PACU
--- NOTE | 2023-05-15 09:54 | P.BOP_ITS ---
Brief Operative Note Date of Service: 05/15/23 Pre-op diagnosis: GERD Post-op diagnosis: same (& small hiatal hernia) Procedure: PROCEDURE DATE: 08/10/2021 PREOPERATIVE DIAGNOSIS: GERD POSTOPERATIVE DIAGNOSIS: ?Same as above. 1) small hiatal hernia PROCEDURE: [id number] with biopsies Surgeon: Ria Yeh M.D.. Ph.D. Administrative Director: None ? Anesthesia: IV sedation Estimated blood loss: ?Minimal FINDINGS AND PROCEDURE: ? OPERATIVE INDICATIONS: ?The patient is a 37 year old female known to me who is interested in bariatric surgery. The patient has GERD and it is necessary to assess for esophagitis. Based on this information I recommended an upper endoscopy to evaluate the patient's symptoms. Risks and complications of the surgery were discussed with the patient in advance particularly the possibility of perforation or bleeding that may require surgical intervention. The patient understood the risks and was in agreement with the plan. ? PROCEDURE: After informed consent was obtained by the patient, the patient was ?transferred to the Operating Room and was placed in the supine position.? After successful induction of IV sedation, a mouth block was inserted and the patient was placed in the left lateral decubitus position. An upper endoscopy was performed next, the oropharynx and esophagus appeared within the normal limits. There was a small 2cm hiatal hernia. The z-line was smooth. Two biopsies were obtained from the distal esophagus 2-3 cm proximal to the GE junction and two additional biopsies from the GE junction. The stomach was entered and it appeared to be of normal size. There was no gastritis. There was no stricture or ulcer. A biopsy was obtained from the gastric fundus and distal antrum. No significant bleeding was noted from any of the biopsy sites. The scope was then advanced into the duodenum which appeared to be normal as well. At that point the duodenum ?and the stomach were decompressed and the scope was withdrawn from the patient's mouth. The patient extubated and was transferred in stable condition to the Recovery Room for further care. I was present and performed all steps of the procedure. There were no residents to assist with this case. Ivan Yeh M.D., Ph.D. Surgeon: Oscar Yeh MD Anesthesia: MAC Was an Administrative Director used for this Procedure?: No Estimated blood loss (mL): 0 IV fluids (mL): 400 Urine output (mL): 0 (No Carrera to record output) Pathology: other (1) GE junction x2, 2) distal esophagus x2, 3) fundus x1, antrum x1) Condition: stable Disposition: PACU
[2023-05-15 11:30] VITALS: BMI 39.5
[2023-05-15 11:49] LABS: UPreg QC Valid YES; Urine Pregnancy NEGATIVE (NEGATIVE)
[2023-05-15] MEDS: Lactated Ringers 1,000 ML 80 ML IVCONT (11:50)
[2023-05-15 11:56] VITALS: BP 127/68; PULSE 54; RESP 16; TEMP 35.9; O2SAT 98
[2023-05-15 13:11] VITALS: BP 122/83; PULSE 77; RESP 16; TEMP 36.1; O2SAT 98
[2023-05-15 13:25] VITALS: BP 139/82; PULSE 61; RESP 16; TEMP 36.6; O2SAT 99
[2023-05-15 13:26] VITALS: BP 124/71; PULSE 61; RESP 16; O2SAT 99
== END 2023-05-15 13:49 | disposition home or self-care (01) ==
LOC: HO.SSS 11:05
PROVIDERS: Nurse Practitioner; PCP Nurse Practitioner Family; Visit Provider Surgery
PROC: 0DJ08ZZ Inspection of Upper Intestinal Tract, Via Natural or Artificial Opening Endoscopic (ICD-10-PCS; CPT 43235; principal; 2023-05-15 12:50)
DX: K21.9 Gastro-esophageal reflux disease without esophagitis (principal); K44.9 Diaphragmatic hernia without obstruction or gangrene; E66.01 Morbid (severe) obesity due to excess calories; Z68.39 Body mass index [BMI] 39.0-39.9, adult; I10 Essential (primary) hypertension; M06.9 Rheumatoid arthritis, unspecified; G47.33 Obstructive sleep apnea (adult) (pediatric); F32.A Depression, unspecified; F41.8 Other specified anxiety disorders; Z79.899 Other long term (current) drug therapy; Z99.89 Dependence on other enabling machines and devices
CPT/HCPCS: 43239; 81025; 88305; 88342; J1596; J2250; J2704

== ENCOUNTER → 2023-05-15 11:03 | Outpatient (BNV) | payer BC, SELFPAY | PROVIDERS: PCP Nurse Practitioner Family; Visit Provider Surgery | DX: K21.9 Gastro-esophageal reflux disease without esophagitis (principal) | CPT/HCPCS: 43239 ==

== ENCOUNTER 2023-05-20 09:11 | Outpatient (REF) | payer BC, SELFPAY ==
--- NOTE | ~2023-05-20 | FL_ITS ---
EXAMINATION: XR FLUOROSCOPY UPPER GI WITH AIR CLINICAL INFORMATION: Preop evaluation prior to bariatric surgery COMPARISON: None TECHNIQUE: Fluoroscopic air contrast upper GI examination was performed utilizing standard techniques with thin and thick barium and effervescent granules. Numerous spot images were obtained. FINDINGS: Dual and single contrast images of the esophagus demonstrate normal caliber, contour, and mucosal pattern. No evidence of stricture, mass, or ulcerations identified. Esophageal peristalsis was normal. A small type I hiatal hernia is present. No significant gastroesophageal reflux was seen during the course of the examination and on reflux views. Dual contrast and single contrast images of the stomach demonstrated normal contour and mucosal pattern without evidence of mass, ulceration, or other abnormality. Contrast freely passed into the gastric antrum and duodenal bulb without delay. Single and air-contrast images of the duodenal bulb demonstrate no abnormality. The duodenal sweep has a normal appearance, course, and mucosal fold appearance. The imaged proximal jejunum has a normal fold pattern and caliber. FLUOROSCOPY TIME: 3 minutes 4 seconds Number of Spot Images: 12 Number of Cine: 5 DOSE AREA PRODUCT: [id number] uGy-m2 (microgray-meter squared) FL/FL upper GI w air IMPRESSION: Small type I hiatal hernia, otherwise unremarkable upper GI series. This procedure was performed by Neno Sheffield PA-C, and supervised by Dr. Ortiz
== END 2023-05-20 09:12 | disposition home or self-care (01) ==
LOC: HO.XRAY 09:11
PROVIDERS: PCP Nurse Practitioner Family; Visit Provider Surgery
DX: E66.01 Morbid (severe) obesity due to excess calories (principal)
CPT/HCPCS: 74246

== ENCOUNTER → 2023-05-20 09:13 | Outpatient (BNV) | payer BC, SELFPAY | PROVIDERS: PCP Nurse Practitioner Family; Visit Provider Radiology Diagnostic Radiology | DX: Z01.818 Encounter for other preprocedural examination (principal) | CPT/HCPCS: 74246 ==

== ENCOUNTER 2023-05-31 08:05 | Outpatient (AMB) | payer BC, MEDICAID, SELFPAY ==
--- NOTE | 2023-05-31 09:29 | A.OFFVIS_ITS ---
Intake VS Expanded 05/31/23 09:38 Height 5 ft 3 in Weight 218 lb BMI 38.6 Body Fat % 50.4 Body Fat Mass 109.8 Fat Free Mass 108.2 Visceral Fat Rating 14.2 Body Water % 38.2 Body Water Mass 83.2 Basal Metabolic Rate/Score 1,614 Intake Visit Reasons: TV Follow Up SWL Allergies No Known Allergies Allergy (Verified 03/25/23 10:07) HPI TV Follow Up SWL HPI Details Start time: 9.22am, End time: 9.42am ?I spent 15 minutes speaking with the patient on the phone plus an additional 5 minutes reviewing and updating records for a total of 20 minutes HPI Comments History of Present Illness Details Overall weight loss: 24.4lbs, or 10.07% TBWL Is doing 2 Celebrate Rebuild protein shakes (1/2 scoop in almond milk, 3 Celebrate protein bars and one meal (8 forks of protein and 8 forks of salad or vegetables) Exercise: is doing treadmill x5/days per week for 480 calories PFSH Medical History Rheumatoid arthritis Obstructive sleep apnea on CPAP Anxiety Depression Hypertension Morbid obesity Surgical History Hx of section Family History Paternal Uncle Cancer of pancreas Paternal Aunt Breast cancer Social History Alcohol intake: current Alcohol intake frequency: holidays/special occasions only Alcohol type: wine and other Patient Tobacco Use Status: Never used Tobacco Assessment & Plan Assessment & Plan (1) Obesity: Code(s): E66.9 - Obesity, unspecified Qualifiers: Obesity type: due to excess calories Obesity classification: adult class 2 (BMI 35 - 39.9) Serious obesity comorbidity presence: with serious comorbidity Body mass index: BMI 39.0-39.9 Qualified Code(s): E66.01 - Morbid (severe) obesity due to excess calories; Z68.39 - Body mass index [BMI] 39.0- 39.9, adult Plan: 1. Continue same nutritional plan of 2 Celebrate Rebuild protein shakes (1/2 scoop in almond milk, 3 Celebrate protein bars and one meal (8 forks of protein and 8 forks of salad or vegetables) 2. Exercise: continue treadmill x5/days per week for 480 calories 3. Continue to send me weight measurements weekly on Mondays Telehealth Telehealth Location of provider rendering services: practice address Location of patient: address on file Patient Identification confirmed using: Name, : Yes Telehealth method: voice only Patient verbally consented to treatment: Yes Patient verbally consented to billing insurance company: Yes Patient informed of any privacy concerns related to visit: Yes Minutes spent on Phone/Video with Pt.: 20 Coding Level of Care Code Tele Est Pt Level 3 (49014) Diagnoses Class 2 severe obesity due to excess calories with serious comorbidity and body mass index (BMI) of 39.0 to 39.9 in adult E66.01; Z68.39 Obesity type: due to excess calories Obesity classification: adult class 2 (BMI 35 - 39.9) Serious obesity comorbidity presence: with serious comorbidity Body mass index: BMI 39.0-39.9 Time Spent (min) 20
[2023-05-31 09:38] VITALS: BMI 38.6
== END 2023-05-31 09:46 | disposition home or self-care (01) ==
LOC: HO.HBS 08:05
PROVIDERS: PCP Nurse Practitioner Family; Visit Provider Surgery
DX: E66.01 Morbid (severe) obesity due to excess calories (principal); Z68.39 Body mass index [BMI] 39.0-39.9, adult
CPT/HCPCS: 99442

== ENCOUNTER → 2023-05-31 08:05 | Outpatient (BNVA) | payer BC, MEDICAID, SELFPAY | PROVIDERS: PCP Nurse Practitioner Family; Visit Provider Surgery ==

== ENCOUNTER 2023-06-03 10:02 | Outpatient (AMB) | payer BC, MEDICAID, SELFPAY ==
--- NOTE | 2023-06-03 09:58 | MHC.WMTHER ---
Intake Intake Visit Reasons: VIDEO F/U SWL Allergies No Known Allergies Allergy (Verified 08/29/23 12:03) [facility] Medical History (Updated 08/15/23 @ 00:01 by Ramakrishna Aden) BMI 37.0-37.9, adult GERD (gastroesophageal reflux disease) Obesity IUD (intrauterine device) in place Rheumatoid arthritis Obstructive sleep apnea on CPAP Anxiety Depression Hypertension Morbid obesity Surgical History (Updated 08/29/23 @ 12:04 by Cailin Rubio [facility]) Hx of laparoscopic partial gastrectomy Hx of esophagogastroduodenoscopy (05/15/23) Hx of section Family History Paternal Uncle Cancer of pancreas Paternal Aunt Breast cancer Social History Household Members: Spouse Housing: Apartment Are you a primary adult care provider to a significant other at home: Yes (children, supportive ) Do you presently have visiting nurse or other home services: No 75 years or older and lives alone: No Alcohol intake: current Alcohol intake frequency: does not drink Alcohol type: wine and other Patient Tobacco Use Status: Never used Tobacco Substance Use Type: Marijuana Current occupational status: employed Behavioral Health Assessment Weight Management Therapy Therapy Notes Details Pt is looking to have weight loss surgery to help improve her health and quality of life. She is currently not in therapy and only was briefly due to separation from her . Also once session with therapist at another weight loss program in 2021. At that time she decided she did not want the surgery. She denied any other mental health history. Pt denied any history of drug or alcohol problems. Presenting Concerns Referral Source provider Reason for referral weight loss surgery evaluation Precipitating Event obesity Living Situation Current Living Situation Own At risk of losing current housing? No Satisfied with current living situation? Yes Comments Pt lives with her and two children ages 16, and 11. Food/Weight/Diet Expectations of change weight loss and maintenance History/Relationship with food Pt reported that she often uses food as an emotional coping mechanism. Currently is using a journal to wrote down her thoughts instead of turning to food. She would often eat tacos, pizza, anything with cheese, fast food, soda drinker, would often eat large quantities even when not hungry, loss of control, feelings of guilt, also eats fast and alone. History/Relationship with weight Pt reported she has been struggling with her weight for most of her life. She was around 260lbs at her heaviest after she had her son. She was around 180lbs about 12 years ago. After stressful situation she stopped doing weight watchers. History/Relationship with dieting [facility] and lost 60lbs or so. counting calories, [place], [facility] and was diagnosed with Binge Eating Disorder Binge Eating Do you frequently eat large amounts of food in short periods of time, not feeling physically hungry? Yes Do you feel out of control when you eat a large amount of food in a short period of time? Yes Do you eat large amounts of food rapidly and typically alone? Yes Night Eating Do you wake up at least once during the night to eat? No If you wake up in the night, do you find that it is necessary to eat something in order to fall back asleep? No Do you have little or no appetite in the morning and feel very hungry in the evening, often overeating between dinner and when you go to bed? No Social History Family history and relationship Patient denied any history of trauma. She stated that her mother is overweight and was always dieting. Recently diagnosed with diabetes. 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 none Education Highest grade completed 11th grade, GED, and hair school Preferred learning style Auditory, Verbal, Written, Learn by doing and Visual Currently enrolled in educational program? No Interested in further educational program? 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 No Meaningful activities gym 5x's a week, Financial Situation Describe current financial situation Comfortable Financial assistance? None Service Service? No Mental Health and Addiction Treatment Current/Past substance abuse? No Current/Past addictive behavior concerns? No Medical and Physical Health Summary Physical exam in the last year? Yes Pain Screening Current pain? No Pain in the last few months? No Medications Is the patient compliant with medications? Yes Does the patient have Richardson Guardian in place? Not applicable Does the patient use complimentary health approaches? No Trauma/Abuse History History of trauma? No Questionnaires PHQ-9 Over the last 2 weeks, how often have you been bothered by any of the following problems? 1. Little interest or pleasure in doing things: not at all 2. Feeling down, depressed, or hopeless: not at all 3. Trouble falling or staying asleep, or sleeping too much: not at all 4. Feeling tired or having little energy: not at all 5. Poor appetite or overeating: not at all 6. Feeling bad about yourself - or that you are a failure or have let yourself or your family down: not at all 7. Trouble concentrating on things, such as reading the newspaper or watching television: nearly every day 8. Moving or speaking so slowly that other people could have noticed. Or the opposite - being so fidgety or restless that you have been moving around a lot more than usual: not at all 9. Thoughts that you would be better off or of hurting yourself in some way: not at all Total score: 3 Source: Developed by Drs. Brenton Santillan, Fidelia Abernathy, Korey Campuzano and colleagues, with an educational gabriel from [employer]. Assessment & Plan Assessment & Plan (1) Unspecified nonpsychotic mental disorder: Code(s): F48.9 - Nonpsychotic mental disorder, unspecified (2) Morbid obesity: Code(s): E66.01 - Morbid (severe) obesity due to excess calories Plan Patient has no mental health treatment hx. She had one appointment in another weight loss program where she was told she has binge eating. Patient did report binge eating tendencies, believe that it may be out of habit of responding to stress in that way and repressing her emotions. Psychoeducation was offered as well as another appointment. She is cleared for surgery and will be seen again. Coding Level of Care Code Tele Psytx 30 mins (55163) Diagnoses Unspecified nonpsychotic mental disorder F48.9 Morbid obesity E66.01 Time Spent (min) 30
== END 2023-06-03 10:30 | disposition home or self-care (01) ==
PROVIDERS: PCP Nurse Practitioner Family; Visit Provider Counselor Mental Health
DX: F48.9 Nonpsychotic mental disorder, unspecified (principal); E66.01 Morbid (severe) obesity due to excess calories; Z68.38 Body mass index [BMI] 38.0-38.9, adult
CPT/HCPCS: 99499

== ENCOUNTER → 2023-06-03 10:02 | Outpatient (BNVA) | payer BC, MEDICAID, SELFPAY | PROVIDERS: PCP Nurse Practitioner Family; Visit Provider Counselor Mental Health ==

== ENCOUNTER 2023-06-28 08:01 | Outpatient (AMB) | payer BC, MEDICAID, SELFPAY ==
--- NOTE | 2023-06-28 09:07 | A.OFFVIS_ITS ---
Intake VS Expanded 06/28/23 09:13 Height 5 ft 3 in Weight 215 lb 1 oz BMI 38.1 Body Fat % 50 Body Fat Mass 107.5 Fat Free Mass 107.6 Visceral Fat Rating 13. Body Water % 38.4 Body Water Mass 82.5 Basal Metabolic Rate/Score 1,861 Intake Visit Reasons: TV Follow Up SWL Allergies No Known Allergies Allergy (Verified 03/25/23 10:07) HPI TV Follow Up SWL HPI Details Start time: 9.04am, End time: 9.18am ?I spent 9 minutes speaking with the patient on the phone plus an additional 5 minutes reviewing and updating records for a total of 14 minutes HPI Comments History of Present Illness Details Overall weight loss: 27.3lbs, or 11.26% TBWL Is doing 2 Celebrate Rebuild protein shakes (1/2 scoop in 8oz almond milk), 3 Celebrate protein bars and one meal (8 forks of protein and 8 forks of salad or vegetables) Exercise: treadmill for 480cal 5 days per week (speed: 3mph, incline: 5-11) PFSH Medical History Rheumatoid arthritis Obstructive sleep apnea on CPAP Anxiety Depression Hypertension Morbid obesity Surgical History Hx of section Family History Paternal Uncle Cancer of pancreas Paternal Aunt Breast cancer Social History Alcohol intake: current Alcohol intake frequency: holidays/special occasions only Alcohol type: wine and other Patient Tobacco Use Status: Never used Tobacco Assessment & Plan Assessment & Plan (1) Obesity: Code(s): E66.9 - Obesity, unspecified Qualifiers: Obesity type: due to excess calories Obesity classification: adult class 2 (BMI 35 - 39.9) Serious obesity comorbidity presence: with serious comorbidity Body mass index: BMI 39.0-39.9 Qualified Code(s): E66.01 - Morbid (severe) obesity due to excess calories; Z68.39 - Body mass index [BMI] 39.0- 39.9, adult Plan: 1. Plan for lap sleeve gastrectomy including upper GI endoscopy. All tests has been completed and reviewed and the patient is cleared for the surgery. ?If diaphragmatic or ventral hernias are present at time of surgery, these will be repaired laparoscopically as well. Risks and complications were discussed in detail including possible conversion to an open procedure, anastomotic leak, bleeding requiring transfusion, small bowel obstruction, , DVT and pulmo nary embolism, cardiac, or pulmonary complications, as intermediate card tender complications such as anastomotic ulcer, insufficient weight loss and vitamin deficiencies. I emphasized the importance of close follow-up, adherence to instructions and good communication. So far she has proven to be an excellent communicator and very compliant with all our directions accomplishing a great weight loss. I believe that she is an excellent candidate and she is ready. 2. Change nutritional plan to THREE Celebrate Rebuild protein shakes (1/2 scoop in 8oz almond milk), TWO Celebrate protein bars and one meal (8 forks of protein and 8 forks of salad or vegetables) 3. Exercise: continue treadmill for 480 calories 5 days per week (speed: 3mph, increase incline: 6-12) 4. Continue to send me weight measurements weekly on Mondays Telehealth Telehealth Location of provider rendering services: practice address Location of patient: address on file Patient Identification confirmed using: Name, : Yes Telehealth method: voice only Patient verbally consented to treatment: Yes Patient verbally consented to billing insurance company: Yes Patient informed of any privacy concerns related to visit: Yes Minutes spent on Phone/Video with Pt.: 14 Coding Level of Care Code Tele Est Pt Level 2 (62352) Diagnoses Class 2 severe obesity due to excess calories with serious comorbidity and body mass index (BMI) of 39.0 to 39.9 in adult E66.01; Z68.39 Obesity type: due to excess calories Obesity classification: adult class 2 (BMI 35 - 39.9) Serious obesity comorbidity presence: with serious comorbidity Body mass index: BMI 39.0-39.9 Time Spent (min) 14
[2023-06-28 09:13] VITALS: BMI 38.1
== END 2023-06-28 09:19 | disposition home or self-care (01) ==
LOC: HO.HBS 08:01
PROVIDERS: PCP Nurse Practitioner Family; Visit Provider Surgery
DX: E66.01 Morbid (severe) obesity due to excess calories (principal); Z68.39 Body mass index [BMI] 39.0-39.9, adult
CPT/HCPCS: 99442

== ENCOUNTER → 2023-06-28 08:01 | Outpatient (BNVA) | payer BC, MEDICAID, SELFPAY | PROVIDERS: PCP Nurse Practitioner Family; Visit Provider Surgery ==

== ENCOUNTER 2023-07-01 10:56 | Outpatient (AMB) | payer BC, MEDICAID, SELFPAY ==
--- NOTE | 2023-07-01 09:41 | MHC.WMTHER ---
Intake Intake Visit Reasons: VIDEO F/U SWL Allergies No Known Allergies Allergy (Verified 03/25/23 10:07) [facility] Medical History Rheumatoid arthritis Obstructive sleep apnea on CPAP Anxiety Depression Hypertension Morbid obesity Surgical History Hx of section Family History Paternal Uncle Cancer of pancreas Paternal Aunt Breast cancer Social History Alcohol intake: current Alcohol intake frequency: holidays/special occasions only Alcohol type: wine and other Patient Tobacco Use Status: Never used Tobacco Behavioral Health Assessment Weight Management Therapy Therapy Notes Details Pt stated that she is struggling in her marriage, does not feel she has a equal partner , does the majority of the work, also emotionally disconnected. They are talking about divorce. She talked about repressed emotions and self for many years due to being JW. Is thinking about marriage counseling. Pt is looking to have weight loss surgery to help improve her health and quality of life. She is currently not in therapy and only was briefly due to separation from her . Also once session with therapist at another weight loss program in 2021. At that time she decided she did not want the surgery. She denied any other mental health history. Pt denied any history of drug or alcohol problems. Presenting Concerns Referral Source provider Reason for referral weight loss surgery evaluation Precipitating Event obesity Living Situation Current Living Situation Own At risk of losing current housing? No Satisfied with current living situation? Yes Comments Pt lives with her and two children ages 16, and 11. Food/Weight/Diet Expectations of change weight loss and maintenance History/Relationship with food Pt reported that she often uses food as an emotional coping mechanism. Currently is using a journal to wrote down her thoughts instead of turning to food. She would often eat tacos, pizza, anything with cheese, fast food, soda drinker, would often eat large quantities even when not hungry, loss of control, feelings of guilt, also eats fast and alone. History/Relationship with weight Pt reported she has been struggling with her weight for most of her life. She was around 260lbs at her heaviest after she had her son. She was around 180lbs about 12 years ago. After stressful situation she stopped doing weight watchers. History/Relationship with dieting [facility] and lost 60lbs or so. counting calories, [place], [facility] and was diagnosed with Binge Eating Disorder Binge Eating Do you frequently eat large amounts of food in short periods of time, not feeling physically hungry? Yes Do you feel out of control when you eat a large amount of food in a short period of time? Yes Do you eat large amounts of food rapidly and typically alone? Yes Night Eating Do you wake up at least once during the night to eat? No If you wake up in the night, do you find that it is necessary to eat something in order to fall back asleep? No Do you have little or no appetite in the morning and feel very hungry in the evening, often overeating between dinner and when you go to bed? No Social History Family history and relationship Patient denied any history of trauma. She stated that her mother is overweight and was always dieting. Recently diagnosed with diabetes. 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 Cultural/Ethnic information Legal Involvement and History Current or historical involvement with the legal system? none Education Highest grade completed 11th grade, GED, and hair school Preferred learning style Auditory, Verbal, Written, Learn by doing and Visual Currently enrolled in educational program? No Interested in further educational program? 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 No Meaningful activities gym 5x's a week, hiking, painting, photography. Financial Situation Describe current financial situation Comfortable Financial assistance? None Service Service? No Mental Health and Addiction Treatment Current/Past substance abuse? No Current/Past addictive behavior concerns? No Medical and Physical Health Summary Physical exam in the last year? Yes Pain Screening Current pain? No Pain in the last few months? No Medications Is the patient compliant with medications? Yes Does the patient have Richardson Guardian in place? Not applicable Does the patient use complimentary health approaches? No Trauma/Abuse History History of trauma? No Assessment & Plan Assessment & Plan (1) Unspecified nonpsychotic mental disorder: Code(s): F48.9 - Nonpsychotic mental disorder, unspecified (2) Morbid obesity: Code(s): E66.01 - Morbid (severe) obesity due to excess calories Plan Patient has no mental health treatment hx. She had one appointment in another weight loss program where she was told she has binge eating. Patient did report binge eating tendencies, believe that it may be out of habit of responding to stress in that way and repressing her emotions. Psychoeducation was offered as well as another appointment. She is cleared for surgery and will be seen again. Telehealth Telehealth Location of provider rendering services: practice address Location of patient: address on file Patient Identification confirmed using: Name, : Yes Telehealth method: voice only Patient verbally consented to treatment: Yes Patient verbally consented to billing insurance company: Yes Patient informed of any privacy concerns related to visit: Yes Minutes spent on Phone/Video with Pt.: 40 Coding Level of Care Code Tele Psytx 45 mins (57231) Diagnoses Unspecified nonpsychotic mental disorder F48.9 Morbid obesity E66.01 Time Spent (min) 45
== END 2023-07-01 13:55 | disposition home or self-care (01) ==
LOC: HO.HBST 10:56
PROVIDERS: PCP Nurse Practitioner Family; Visit Provider Counselor Mental Health
DX: F48.9 Nonpsychotic mental disorder, unspecified (principal); E66.01 Morbid (severe) obesity due to excess calories
CPT/HCPCS: 90834

== ENCOUNTER → 2023-07-01 10:56 | Outpatient (BNVA) | payer BC, MEDICAID, SELFPAY | PROVIDERS: PCP Nurse Practitioner Family; Visit Provider Counselor Mental Health | DX: F48.9 Nonpsychotic mental disorder, unspecified (principal); E66.01 Morbid (severe) obesity due to excess calories ==

== ENCOUNTER 2023-07-29 08:20 | Outpatient (AMB) | payer BC, MEDICAID, SELFPAY ==
--- NOTE | 2023-07-29 08:48 | MHC.OFFVISWM ---
Intake VS Expanded 07/29/23 08:59 Height 5 ft 3 in Weight 211 lb 1 oz BMI 37.4 Body Fat % 49.5 Body Fat Mass 104.4 Fat Free Mass 106.5 Visceral Fat Rating 13.5 Body Water % 38.7 Body Water Mass 81.6 Basal Metabolic Rate/Score 1,581 Intake Visit Reasons: TV Pre Op LSG 08/06/23 Allergies No Known Allergies Allergy (Verified 07/29/23 08:48) Medication List - Last Reconciled 07/29/23 by Oscar Yeh MD benazepril-hydrochlorothiazide 20-25 mg 1 tab PO DAILY folic acid 1 mg PO DAILY methotrexate sodium 2.5 mg PO DIRECTED ondansetron 4 mg PO BID pantoprazole 40 mg PO DAILY pantoprazole 40 mg PO DAILY polyethylene glycol 3350 (Miralax) 17 grams PO DAILY sertraline 50 mg PO DAILY sucralfate 10 mL PO BID thiamine HCl (vitamin B1) 100 mg PO DAILY HPI TV Pre Op LSG 08/06/23 HPI Details Start time: 8.40am, End time: 9.10am ?I spent 25 minutes speaking with the patient on the phone plus an additional 5 minutes reviewing and updating records for a total of 30 minutes HPI Comments History of Present Illness Details Overall weight loss: 31.3 lbs, or 12.91% TBWL Is doing 3 Celebrate Rebuild protein shakes (1/2 scoop in almond milk), 2 Celebrate protein bars and one meal (8 forks of protein and 8 forks of vegetables) Exercise: is doing treadmill (3mph, incline 6-12) for 480 calories x 5/week [facility] Medical History Rheumatoid arthritis Obstructive sleep apnea on CPAP Anxiety Depression Hypertension Morbid obesity Surgical History Hx of section Family History Paternal Uncle Cancer of pancreas Paternal Aunt Breast cancer Social History Alcohol intake: current Alcohol intake frequency: holidays/special occasions only Alcohol type: wine and other Patient Tobacco Use Status: Never used Tobacco Assessment & Plan Assessment & Plan (1) Obesity: Code(s): E66.9 - Obesity, unspecified Qualifiers: Obesity type: due to excess calories Obesity classification: adult class 2 (BMI 35 - 39.9) Serious obesity comorbidity presence: with serious comorbidity Body mass index: BMI 39.0-39.9 Qualified Code(s): E66.01 - Morbid (severe) obesity due to excess calories; Z68.39 - Body mass index [BMI] 39.0-39.9, adult Plan: 1. Plan for lap sleeve gastrectomy including upper GI endoscopy. All tests has been completed and reviewed and the patient is cleared for the surgery. ?If diaphragmatic or ventral hernias are present at time of surgery, these will be repaired laparoscopically as well. Risks and complications were discussed in detail including possible conversion to an open procedure, anastomotic leak, bleeding requiring transfusion, small bowel obstruction, , DVT and pulmonary embolism, cardiac, or pulmonary complications, as termite exterminator complications such as anastomotic ulcer, insufficient weight loss and vitamin deficiencies. I emphasized the importance of close follow-up, adherence to instructions and good communication. So far she has proven to be an excellent communicator and very compliant with all our directions accomplishing a great weight loss. I believe that she is an excellent candidate and she is ready. 2. Preop prescriptions were provided and explained the purpose of each one. Need to be purchased preop. Start Pantoprazole now as you get it from the pharmacy, 1 pill per day. Sucralfate and Zofran are for after surgery as needed. 3. Bowel prep: please do 7 packets ?of Miralax mixing each one with a an 8oz glass of water, crystal light, gatorade zero, or propel ?on 08/04/23 and the same amount on 08/05/23. The Miralax you begin with one packet at a time in 8oz water or crystal light, gatorade zero, or propel ?as early in the day as you can and you do them back to back until you finish them. Continue the protein shakes during? the bowel prep. 4. Needs to purchase 1oz medicine cups . 5. Needs to purchase Children's liquid Tylenol for postop pain control. 6. She needs to stop the Methotrexate today 07/29/23. you can re-start it on 09/05/23. Avoid aspirin, motrin, Advil, Aleve, Ibuprofen, Naproxyn. Tylenol is OK. 7. She needs to purchase the Celebrate 4:1 protein shakes from the hospital's gift shop. 8. Will do basic preop blood work-up any day between Saturday04/09/22 and Saturday04/13/22 fasting for 12 hours and is scheduled to see the Anesthesiologist prior to the day of surgery. 9. Measure your blood pressure daily in the morning. If the blood pressure is: Below 120/70: do not take the Lisinopril/hydrochlorothiazide 121-71 to 130/80: take half pill of the Lisinopril/hydrochlorothiazide Over 131/81: take one pill of the Lisinopril/hydrochlorothiazide 10. Importance of adherence to postop folllow-up and recommendations was underscored and she understands that. 11. Stop food and bars and continue with 3 Celebrate Rebuild protein shakes (ONE scoop EACH in 8oz almond milk) at 7am-9am, 10am-12pm and 1pm-3pm and TWO more Celebrate Rebuild protein shakes with TWO scoops in 8oz of almond milk at 4pm-6pm and 7pm-9pm 12. No soups, broths or V8 13. The patient's?medical?history has been reviewed and they are considered low risk for post op DVT and therefore DVT prophylaxis is not considered necessary. Travel after surgery was reviewed. The patient has not disclosed any travel plans during the first 30 days after surgery and they have been advised that within the first 30 days after surgery any bus, plane, train or car travel over 2 hours in duration is contraindicated due to the possibility of developing blood clots from immobility. Any travel, needs to include periods of ambulation of 10 minutes in duration every 2 hours.? Patient was instructed to discuss any plans for travel during this period with their bariatric surgeon.? 14. Please take at the day of surgery the following medications: Only the Lisinopril with the hydrochlorothiazide based on the parameters described above 15. Stop any control pills and don't use them for one month after surgery 16. Absolutely no smoking or vaping, or marijuana until the surgery and for at least the first 4 weeks. Only nicotine patches are allowed. 17. Send me weight measurements on Saturday08/06/23 the day of surgery before you go to the hospital. 18. Avoid any steroids by mouth for any reason. Let me know if someone prescribes them to you 19. These instructions supersede anything else you read in the handbook, anything you watched in videos or classes or you were told by any other provider. If there is any conflict, you follow the above instructions and nothing else. Orders: Orders Comprehensive Met. Panel Today E66.9 - Obesity, unspecified Prothrombin Time INR Today E66.9 - Obesity, unspecified Type and Screen Today E66.9 - Obesity, unspecified Partial Thromboplastin Time Today E66.9 - Obesity, unspecified Complete Blood Count Auto Diff Today E66.9 - Obesity, unspecified TSH reflex Free T4 Today E66.9 - Obesity, unspecified C Reactive Protein Today E66.9 - Obesity, unspecified Lipid Panel Today E66.9 - Obesity, unspecified Hemoglobin A1c Today E66.9 - Obesity, unspecified Insulin Today E66.9 - Obesity, unspecified Medications: New ondansetron Only take one every 12 hours as needed if you have nausea 4 mg PO BID 20 tabs 0RF nausea and vomiting R11.0 - Nausea polyethylene glycol 3350 (Miralax) Mix each packet with 8oz of water, Crystal light, or Gatorade zero, or Propel and do 7 packets on 08/04/23 and another 7 packets on 08/05/23 17 grams PO DAILY 14 ea 0RF Z01.818 - Encounter for other preprocedural examination sucralfate 10 mL PO BID 600 mL 2RF K20.90 - Esophagitis, unspecified without bleeding pantoprazole 40 mg PO DAILY 90 tabs 0RF K20.90 - Esophagitis, unspecified without bleeding Telehealth Telehealth Location of provider rendering services: practice address Location of patient: address on file Patient Identification confirmed using: Name, : Yes Telehealth method: voice only Patient verbally consented to treatment: Yes Patient verbally consented to billing insurance company: Yes Patient informed of any privacy concerns related to visit: Yes Minutes spent on Phone/Video with Pt.: 30 Coding Level of Care Code Tele [facility] Pt Level 4 (74415) Diagnoses Class 2 severe obesity due to excess calories with serious comorbidity and body mass index (BMI) of 39.0 to 39.9 in adult E66.01; Z68.39 Obesity type: due to excess calories Obesity classification: adult class 2 (BMI 35 - 39.9) Serious obesity comorbidity presence: with serious comorbidity Body mass index: BMI 39.0-39.9 Time Spent (min) 30
[2023-07-29 08:59] VITALS: BMI 37.4
== END 2023-07-29 09:10 | disposition home or self-care (01) ==
LOC: HO.HBS 08:20
PROVIDERS: PCP Nurse Practitioner Family; Visit Provider Surgery
DX: E66.01 Morbid (severe) obesity due to excess calories (principal); Z68.39 Body mass index [BMI] 39.0-39.9, adult
CPT/HCPCS: 99024

== ENCOUNTER → 2023-07-29 08:20 | Outpatient (BNVA) | payer BC, MEDICAID, SELFPAY | PROVIDERS: PCP Nurse Practitioner Family; Visit Provider Surgery ==

== ENCOUNTER → 2023-08-02 09:10 | Outpatient (BNVA) | payer BC, MEDICAID, SELFPAY | PROVIDERS: PCP Nurse Practitioner Family; Visit Provider Surgery ==

== ENCOUNTER 2023-08-06 07:53 | Outpatient (BNV) | payer BC, MEDICAID, SELFPAY | END 2023-08-06 08:57 | PROVIDERS: Admitting Provider Surgery; PCP Nurse Practitioner Family; Visit Provider Internal Medicine Cardiovascular Disease | DX: R00.1 Bradycardia, unspecified (principal) | CPT/HCPCS: 93010 ==

== ENCOUNTER 2023-08-06 07:53 | Inpatient (IN) | payer MEDICAID, SELFPAY ==
[2023-08-02 09:10] LABS: MANUAL DIFF FLAG NO
[2023-08-02 10:14] LABS: Basophils Percent Auto 0.5 % (0-2); Eosinophils Absolute Auto 0.1 X10*3/uL (0.0-0.4); Eosinophils Percent Auto 0.9 % (0-4); Hematocrit 38.1 % (37.0-47.0); Hemoglobin 12.3 g/dl (12.0-16.0); Imm Gran Abs Auto 0.08 X10*3/uL (0.00-0.03); Imm Gran Pct Auto 1.2 % (0.0-0.4); Lymphocytes Absolute Auto 1.4 X10*3/uL (1.2-4.9); Lymphocytes Percent Auto 20.6 % (20-40); Mean Corpuscular HGB Conc 32.3 g/dl (31.0-35.0); Mean Corpuscular Hemoglobin 27.2 pg (27.0-33.0); Mean Corpuscular Volume 84.1 fL (80.0-98.0); Mean Platelet Volume 9.5 fL (9.4-12.3); Monocytes Absolute Auto 0.4 X10*3/uL (0.1-1.2); Monocytes Percent Auto 6.6 % (2-11); Neutrophils Absolute Auto 4.6 x10*3/uL (2.0-8.3); Neutrophils Percent Auto 70.2 % (45-73); Platelet Count 292 X10*3/uL (160-400); Red Blood Count 4.53 X10*6/uL (4.20-5.50); Red Cell Distribution Width 15.1 % (11.0-16.0); White Blood Count 6.6 X10*3/uL (4.8-10.8)
[2023-08-02 10:21] LABS: Estimated Average Glucose 105 mg/dL; Hemoglobin A1c % 5.3 % (<6.0)
[2023-08-02 10:23] LABS: Partial Thromboplastin Time 34.4 SEC (26.0-36.8)
[2023-08-02 11:25] VITALS: BMI 37.4
[2023-08-02 11:27] LABS: Alanine Aminotransferase 30 U/L (0-31); Albumin Level 3.9 g/dL (3.5-5.0); Alkaline Phosphatase 101 U/L (39-117); Anion Gap 11 (12-20); Aspartate Amino Transferase 22 U/L (5-31); Bilirubin Total 0.3 mg/dL (0.0-1.0); Blood Urea Nitrogen 13 mg/dL (9-16); C Reactive Protein 3.81 mg/dL (< or = 0.50); Calcium 9.7 mg/dL (8.4-10.2); Carbon Dioxide 28 mmol/L (22-29); Chloride 107 mmol/L (96-108); Cholesterol 167 mg/dL (<200); Estimated Glomerular Filt Rate > 60; Glucose Random 74 mg/dL (60-115); HDL Cholesterol 57 mg/dL (>40); LDL Cholesterol Calculated 100 mg/dL (<100); Potassium 4.3 mmol/L (3.3-5.1); Sodium 142 mmol/L (135-145); Total Protein 7.4 g/dL (6.5-8.0); Triglycerides 52 mg/dL (<150)
[2023-08-02 11:36] LABS: Insulin 5 uU/mL (2-29); TSH reflex Free T4 1.52 uIU/mL (0.32-4.0)
--- NOTE | 2023-08-02 14:12 | HO.ANESPROP2 ---
Documented by User: Julita Devine NP 08/02/23 14:14 HPI - Anesthesia Eval Consult details Narrative: 38yo F for Gastrectomy Sleeve-EGD, possible diaphragmatic hernia, possible ventral hernia, possible open PMFSH Active Problems Active Problems: All Active Problems (Updated 05/31/23 @ 11:27 by Oscar Yeh MD) Esophagitis (Acute) Unspecified nonpsychotic mental disorder (Acute) Obesity (Acute) Vitamin B1 deficiency (Acute) H. pylori infection (Acute) Rheumatoid arthritis (Acute) Obstructive sleep apnea on CPAP (Acute) Anxiety (Acute) Depression (Acute) Hypertension (Acute) Morbid obesity (Acute) Past Medical History Medical History GERD (gastroesophageal reflux disease) Obesity IUD (intrauterine device) in place Rheumatoid arthritis Obstructive sleep apnea on CPAP Anxiety Depression Hypertension Morbid obesity Family History Family History Paternal Uncle Cancer of pancreas Paternal Aunt Breast cancer Family history of problems with anesthesia: No Surgical History Surgical History Hx of esophagogastroduodenoscopy (05/15/23) Hx of section History of Problems with Anesthesia: No Social History Social History Household Members: Family Housing: House Are you a primary urgent care nurse practitioner to a significant other at home: Yes (children, supportive ) Do you presently have visiting nurse or other home services: No Alcohol intake: current Alcohol intake frequency: does not drink Alcohol type: wine and other Patient Tobacco Use Status: Never used Tobacco Substance Use Type Other:: marijuana gummies Substance Use Frequency: Occasionally Have you been hit, kicked, punched, or otherwise hurt by someone within the past year? If so, by whom?: No Are you DNR?: No Advance Directives: No Advance Directives Information Provided: Yes Advance Directives on File: No Recently lost weight without trying: No Nutrition Risks: No Nutritional Risk Patient : No FDLMP: 05/17/2023 : No Poor oral hygiene: No Current occupational status: employed Meds Allergies Allergy/AdvReac Type Severity Reaction Status Date / Time No Known Allergies Allergy Verified 08/02/23 11:22 Home Medications Medication Instructions Recorded Confirmed Last Taken Type benazepril 20 1 tab PO DAILY 02/18/23 08/06/23 08/05/23 History mg-hydrochlorothiazide 25 mg tablet folic acid 1 mg tablet 1 mg PO DAILY 02/18/23 08/02/23 05/15/23 History methotrexate sodium 2.5 mg tablet 2.5 mg PO DIRECTED 02/18/23 08/06/23 07/23/23 History sertraline 50 mg tablet 50 mg PO DAILY 02/18/23 08/06/23 08/05/23 History Exam Height,Weight and Vital Signs: Height 5 ft 3 in Weight 95.708 kg Pertinent Lab Results Pertinent Lab Results: Laboratory Tests 08/02/23 09:00 WBC 6.6 RBC 4.53 Hgb 12.3 Hct 38.1 MCV 84.1 MCH 27.2 MCHC 32.3 RDW 15.1 Plt Count 292 MPV 9.5 Immature Gran % (Auto) 1.2 H Neut % (Auto) 70.2 Lymph % (Auto) 20.6 [place] % (Auto) 6.6 Eos % (Auto) 0.9 Baso % (Auto) 0.5 Lymph # (Auto) 1.4 [place] # (Auto) 0.4 Eos # (Auto) 0.1 Baso # (Auto) 0.0 Abs Immat Gran (auto) 0.08 H Absolute Neuts (auto) 4.6 Absolute Nucleated RBC 0.000 Nucleated RBC % (auto) 0.0 PT 12.0 INR 1.0 APTT 34.4 Sodium 142 Potassium 4.3 Chloride 107 Carbon Dioxide 28 Anion Gap 11 L BUN 13 Creatinine 0.76 Estim Creat Clear Calc TNP Estimated GFR > 60 Random Glucose 74 Estimat Average Glucose 105 Hemoglobin A1c % 5.3 Insulin Level 5 Calcium 9.7 Total Bilirubin 0.3 AST 22 ALT 30 Alkaline Phosphatase 101 C-Reactive Protein 3.81 H Total Protein 7.4 Albumin 3.9 Triglycerides 52 Cholesterol 167 LDL Cholesterol, Calc 100 H HDL Cholesterol 57 TSH 1.52 Blood Type B Positive Antibody Screen NEGATIVE Narrative Narrative: EKG 03/2023 Vent. Rate : 050 BPM Atrial Rate : 050 BPM P-R Int : 158 ms QRS Dur : 082 ms QT Int : 434 ms P-R-T Axes : 017 -08 015 degrees QTc Int : 395 ms Sinus bradycardia Minimal voltage criteria for LVH, may be normal variant ( R in aVL ) Borderline ECG No previous ECGs available Assessment and Plan Assessment Anesthesia Assessment: Chart Reviewed Final Anesthetic Review Family History of Problems with Anesthesia: No History of Problems with Anesthesia: No Documented by User: Misha Ho MD 08/06/23 11:34 [facility] Past Medical History Medical History GERD (gastroesophageal reflux disease) Obesity IUD (intrauterine device) in place Rheumatoid arthritis Obstructive sleep apnea on CPAP Anxiety Depression Hypertension Morbid obesity Family History Family History Paternal Uncle Cancer of pancreas Paternal Aunt Breast cancer Surgical History Surgical History Hx of esophagogastroduodenoscopy (05/15/23) Hx of section Social History Social History Household Members: Family Housing: House Are you a primary urgent care nurse practitioner to a significant other at home: Yes (children, supportive ) Do you presently have visiting nurse or other home services: No Alcohol intake: current Alcohol intake frequency: does not drink Alcohol type: wine and other Patient Tobacco Use Status: Never used Tobacco Substance Use Type Other:: marijuana gummies Substance Use Frequency: Occasionally Have you been hit, kicked, punched, or otherwise hurt by someone within the past year? If so, by whom?: No Are you DNR?: No Advance Directives: No Advance Directives Information Provided: Yes Advance Directives on File: No Recently lost weight without trying: No Nutrition Risks: No Nutritional Risk Patient : No FDLMP: 05/17/2023 : No Poor oral hygiene: No Current occupational status: employed Meds Allergies Allergy/AdvReac Type Severity Reaction Status Date / Time No Known Allergies Allergy Verified 08/02/23 11:22 Home Medications Medication Instructions Recorded Confirmed Last Taken Type benazepril 20 1 tab PO DAILY 02/18/23 08/06/23 08/05/23 History mg-hydrochlorothiazide 25 mg tablet folic acid 1 mg tablet 1 mg PO DAILY 02/18/23 08/02/23 05/15/23 History methotrexate sodium 2.5 mg tablet 2.5 mg PO DIRECTED 02/18/23 08/06/23 07/23/23 History sertraline 50 mg tablet 50 mg PO DAILY 02/18/23 08/06/23 08/05/23 History Exam Airway Mallampati Class: II TM Dist: >3cm Neck ROM: Full Loose/Missing/Broken Teeth: No Heart: bradycardia, regular rhythm Lungs: cta b/l Assessment and Plan Assessment Anesthesia Assessment: Anesthesia Plan Discussed Final Anesthetic Review NPO: Yes ASA Class: III Final Preanesthetic Review: No Changes in Pt Med Stat, Meds/Allgs Chart Reviewed, Consent Obtained/Reviewed and Anes Risks/Benef Reviewed Patient Risk: Intermediate Procedure Risk: Intermediate Assessment/Block/Sedation in SS: Assess/Block/Sedation-SS Anesthetic Plan Anesthetic Plan: GA and Agree w/ Assess. and Plan Disposition: Standard PACU
[2023-08-06] VITALS (23 sets, daily range): BP systolic 115–177; BP diastolic 60–93; PULSE 43–90; RESP 12–20; TEMP 36–36.9; O2SAT 94–100; BMI 36.8
--- NOTE | 2023-08-06 08:14 | PHA.MEDREC ---
Pharmacy Consult ? Medication Reconciliation Pharmacy has completed the medication reconciliation. Reviewed med rec done by nursing
--- NOTE | 2023-08-06 08:57 | ECG_ITS ---
Test Reason : bradycardia preop Blood Pressure : / mmHG Vent. Rate : 048 BPM Atrial Rate : 048 BPM P-R Int : 158 ms QRS Dur : 086 ms QT Int : 478 ms P-R-T Axes : 023 -15 024 degrees QTc Int : 427 ms Sinus bradycardia with occasional Premature ventricular complexes Minimal voltage criteria for LVH, may be normal variant ( R in aVL ) Borderline ECG When compared with ECG of 01-APR-2023 08:20, Premature ventricular complexes are now Present Referred By: Misha Ho Electronically Signed By:MAIKEL JIMENEZ MD
[2023-08-06 09:07] LABS: Glucose, Whole Blood 80 mg/dL (60-115)
[2023-08-06] MEDS: Lactated Ringers 1,000 ML 999 ML IV (09:12)
[2023-08-06] MEDS: Aprepitant 32 MG/4.4 ML VIAL IVPUSH (09:12)
[2023-08-06 09:18] LABS: UPreg QC Valid YES; Urine Pregnancy NEGATIVE (NEGATIVE)
[2023-08-06 09:41] LABS: Anion Gap 14 (12-20); Carbon Dioxide 27 mmol/L (22-29); Chloride 108 mmol/L (96-108); Potassium 5.2 mmol/L (3.3-5.1); Sodium 144 mmol/L (135-145)
--- NOTE | 2023-08-06 09:51 | PC.NURSE ---
On tele pt noted to be bradycardic with frequent PAC's and PVC's rates jumping between 30-50's. Dr Ho and Dr Jeff notified STAT EKG and Lytes obtained. EKG provided for review to team. Dr Paz updated and ok to proceed with planned surgical procedure at this time. Anesthesia notified K+ 5.2 fluid bolus infusing per standing orders.
--- NOTE | 2023-08-06 10:03 | MHC.SHP ---
Pre-Procedural Eval Section A - 24 Hr Update-Section A only Date of Service: 08/06/23 The patient is an INPATIENT: Yes The patient has been examined within 24 hours of the surgical procedure. The History & Physical has been completed within 30 days and I have reviewed it.: Yes Section B - Complete if H&P > 30 days Chief Complaint: obesity Relevant Family History (Specify if Yes): No Relevant Social History: None Present Medications: None Medical History: No relevant PMH History of Previous Operations: No relevant previous surgery Allergies: Allergies Allergy/AdvReac Type Severity Reaction Status Date / Time No Known Allergies Allergy Verified 08/02/23 11:22 Review of Systems Sugical H&P ROS: Negative: Constitution, Cardiovascular, Respiratory, Neurological, Psychiatric, Hem-Onc, Allergic/Immunologic, Gastrointestinal, Genitourinary, Musculoskeletal, Integumentary, Endocrine and Eyes/Ears/Nose/Throat Exam Surgical H&P Exam: Normal: HEENT, Normal: Heart, Normal: Lungs, Normal: Extremities, Normal: Abdomen, Normal: Skin and Normal: Neurological Plan Diagnosis/Plan: Unchanged I have reviewed the history and physical and performed a pertinent physical examination on my patient. No changes have occurred unless specified. Time Spent With Patient Time: Total time managing care of this patient today ____ minutes.
--- NOTE | 2023-08-06 10:12 | P.BOP_ITS ---
Brief Operative Note Date of Service: 08/06/23 Pre-op diagnosis: Severe obesity with comorbidities (see below) Post-op diagnosis: same Procedure: INITIAL PATIENT BMI ON PRESENTATION AT OUR OFFICE: 42.9 kg/m2 LAST BMI BEFORE SURGERY: 37.4 kg/m2 COMORBIDITIES: sleep apnea on CPAP, hypertension ADHD, liver steatosis, depression, anxiety, GERD, Rheumatoid arthritis, GERD, liver steatosis, liver fibrosis, esohagitis ?The patient presented to the Weight Management Program with significant obesity that was negatively impacting the patient's comorbidities as listed above.? The program is a phased program with a special focus on preoperative medical weight management to promote substantial weight loss and prepare the patients for the second phase of the program: bariatric surgery. The patient participated in an intensive weekly lifestyle ?intervention and exercise program during which the patient ?has lost between the initial office visit and the last preoperative visit 31.3lbs, or 12.93% of initial actual body weight. It was deemed appropriate for the patient to now have bariatric surgery. In light of the current Covid-19 pandemic and the well documented strong association of obesity and increased risk of worse outcomes if infected with Covid-19 (REFERENCES: https://pubmed.ncbi.nlm.nih.gov/96822608/ ,? https://pubmed.ncbi.nlm.nih.gov/05733733/ ), any delay in undergoing bariatric surgery may lead to the patient's worsening health condition and increased?risk of more severe Covid-19 disease if infected. In addition a recent?study from [facility] published in [employer]UN[employer] Surgery on 05/01/2021 ([email or web address]) found that, among patients with obesity, substantial weight loss achieved with surgery was associated with improved outcomes of COVID-19 infection. The findings suggest that obesity can be a modifiable risk factor for the severity of COVID-19 infection. In addition, the patient met the BMI-criteria for bariatric surgery based on the BMI on initial presentation. The patient should not be penalized for achieving such weight loss because ?it is not sustainable long-term without surgical inte rvention and it was achieved in preparation for bariatric surgery ?under my direction and based on my published research ([email or web address]).[email or web address] and? h [email or web address]/article/[email or web address])[email or web address]-X/pdf ) ?that a 10% preoperative weight loss improves long-term weight loss after surgery and reduces perioperative complications.? Insurance carriers such as [facility] have endorsed my recommendations ?and have included in their policies criteria to include a 10% preoperative weight loss requirement. PROCEDURE: Esophago-gastroscopy, laparoscopic sleeve gastrectomy and laparoscopic gastropexy INDICATIONS: This is a 38 year-old female who was electively scheduled for laparoscopic, possibly open sleeve gastrectomy. The risks and complications of the procedure were discussed with the patient in advance, particularly the possibility of ; pulmonary embolism; staple line leak; bleeding; GERD; cardiac, pulmonary, or renal complications; as well as long-term problems such as insufficient weight loss, vitamin deficiency, strictures, or ulcers. The patient understood all the risks, and was in agreement to proceed with surgery. DESCRIPTION OF PROCEDURE: After informed consent was obtained from the patient, the patient was given preoperative antibiotics, and was transferred to the operating room. After successful induction of general anesthesia, pneumatic compression devices were placed on both lower extremities. An upper endoscopy was performed next. The oropharynx and esophagus appeared to be within normal limits. There was no diaphragmatic hernia present consistent with the findings of the preoperative upper GI. The stomach was entered. Then after all fluid and air were suctioned and the stomach was fully decompressed, the scope was withdrawn and secured in the mid esophagus. The patient was then prepped and draped in the usual sterile manner, and abdominal access was established at the right upper quadrant with the Eliezer technique. A 12 mm blunt port was inserted, and the abdomen was insufflated with CO2 to a pressure of 15 mmHg. Under direct visualization, additional ports were placed, specifically two 5 mm Versi-step ports to the left upper quadrant, and a 5 mm Versi-Step port to the right upper quadrant. 1% lidocaine plain was used to infiltrate all port sites as well as all fascia defects. Using the EndoClose suture passer device, I placed a #1 Polysorb tie across the falciform ligament in order to retract it up against the abdominal wall and prevent injury of the ligament with our instruments during the procedure. Following that, the patient was placed in a steep reverse Trendelenburg position. An additional 5 mm port was placed to the right flank for the Mediflex retractor that was used to retract the left lobe of the liver. The gastro-esophageal fat pad was opened with the ultrasonic device (Thunderbeat, Olympus) and the anterior esophagus and hiatus were exposed. The angle of His was opened with the ultrasonic device the fundus of the stomach from any diaphragmatic and splenic attachments. I then opened the gastrocolic ligament between the transverse colon and the grea ter curvature of the stomach with the ultrasonic device to enter the lesser sac and facilitate the ligation of the short gastric vessels. I started at a mid- point along the greater curvature and using the Thunderbeat, all short gastric vessels were divided all the way to the angle of His until the left oly was completely dissected at its entirety. I then divided the gastro-colic ligament distally to a distance of about 3-4 cm proximal to the pylorus. The stomach was then divided transversely with one Endo LEXII-45 purple and four LEXII-60 articulating purple loads using the SIGNIA stapler and loads. Every effort was made that the gastric sleeve had a tubular shape and an even caliber throughout. Once the sleeve resection was completed, the staple line of the gastric sleeve was reinforced with Hemoclips. The resected stomach was retrieved without difficulty from the Eliezer port. A gastropexy was then performed in order to prevent postoperative GERD and partial gastric volvulus. Several interrupted 2.0 Surgidac sutures were placed between the sleeve's staple line and the previously divided greater omentum and gastro-colic ligament using the Endo-Stitch device. ?An upper endoscopy was performed. There was no narrowing at the GE junction. The scope was easily advanced all the way to the pylorus which was clearly visualized. There was no narrowing anywhere and the sleeve's caliber was even throughout. The sleeve's staple line was inspected and there was no evidence of ischemia, bleeding or dehiscence. At that point the gastroscope was withdrawn from the patient?s mouth while we were decompressing the bowel and the stomach from any remaining air. I looked into the lesser sac to see how the sleeve was situating and it was situating well. There was no bleeding from the staple line, spleen, or short gastric vessels. The Mediflex retractor was removed, and the undersurface of the liver was inspected and there was no bleeding. The patient was placed in supine position. I closed the fascial defect of the 12 mm port site with a figure of eight #1 Polysorb suture. Then 30cc Ropivacaine plain with 10 mg of Dexamethasone were used to infiltrate the fascial closure as well as all skin incisions. At this point, the abdomen was deflated, all ports were removed under direct vision, and no bleeding was noted from any of the port sites. The skin incisions were irrigated with saline and were closed with 4-0 absorbable monofilament sutures. Steri-Strips and OpSites were used to cover all incisions. The patient was extubated and was transferred in stable condition to the recovery room for further care. I was present and performed all ellis parts of the procedure. 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 There were no residents to assist with this case. Ivan Yeh MD, PhD, FACS Surgeon: Oscar Yeh MD Anesthesia: GETA, local and other (TAP block) Was an Integrated Logistics Support Manager used for this Procedure?: No Integrated Logistics Support Manager: Adore Jordan Estimated blood loss (mL): 10 IV fluids (mL): 2,500 Urine output (mL): 0 (No Carrera to record output) Pathology: other (Stomach) Condition: stable Disposition: PACU
--- NOTE | 2023-08-06 10:16 | P.PNGS_ITS ---
Subjective Subjective Date of Service: 08/07/23 Interval history: Feels well. Mild incisional pain. She is tolerating phase 1 bariatric diet Physical Exam 2 Vital Signs: Vital Signs: Last Vital Signs Temp 97.4 F 08/06/23 08:40 Pulse 48 L 08/06/23 08:40 Resp 16 08/06/23 08:40 BP 115/60 08/06/23 08:40 Pulse Ox 98 08/06/23 08:40 O2 Del Method Room Air 08/06/23 08:40 BMI result Body Mass Index 36.8 GI: Inspection: Yes normal to inspection, Yes incision (clean, dry and intact) and Yes obesity Palpation (GI): Soft to palpation Extrem: Right lower extremity: normal to inspection (no calf tenderness) L eft lower extremity: normal to inspection (no calf tenderness) Objective Data Labs 08/07/23 06:03 08/07/23 06:03 Labs: Laboratory Results - last 24 hr 08/06/23 08/06/23 08/06/23 08:00 08:56 09:21 Anion Gap 14 POC Glucose 80 Urine Test NEGATIVE Procedures Date of Service Date of Service: 08/07/23 Progress Note: A&P Assessment and plan (1) Obesity: Status: Acute Assessment and Plan: s/p laparoscopic sleeve gastrectomy and gastropexy Doing well Will check am labs and if OK the patient will be discharged home (2) BMI 37.0-37.9, adult: Status: Acute (3) Hypertension: Status: Acute (4) Depression: Status: Acute (5) Anxiety: Status: Acute (6) Obstructive sleep apnea on CPAP: Status: Acute (7) Rheumatoid arthritis: Status: Acute (8) Esophagitis: Status: Acute (9) GERD (gastroesophageal reflux disease): Status: Acute (10) Liver fibrosis: Status: Acute (11) Steatosis, liver: Status: Acute (12) S/P laparoscopic sleeve gastrectomy: Status: Acute Time Spent With Patient Time: Total time managing care of this patient today ____ minutes. Quality Stroke Does the patient have a stroke diagnosis?: No VTE Prior VTE?: No VTE Risk Level:: Surgical - moderate VTE Device Contraindication: N/A - Device Ordered VTE Drug Contraindication: Treatment Not Indicated
[2023-08-06] MEDS: ceFAZolin Sodium/Dextrose,Iso 2 GM/50 ML PIGGYBACK IV ×2 (10:48→17:12)
[2023-08-06] MEDS: Acetaminophen 1,000 MG/100 ML PIGGYBACK 400 MG IV (11:15)
--- NOTE | 2023-08-06 12:57 | P.DS_ITS ---
DS: Providers Provider Date of Service: 08/06/23 Date of admission: 08/06/23 07:53 Primary care physician: Zabrina Kaur NP DS: Diagnosis Discharge Diagnosis (1) Obesity: Status: Acute (2) Hypertension: Status: Acute (3) Depression: Status: Acute (4) Anxiety: Status: Acute (5) Obstructive sleep apnea on CPAP: Status: Acute (6) Rheumatoid arthritis: Status: Acute (7) Esophagitis: Status: Acute (8) GERD (gastroesophageal reflux disease): Status: Acute (9) Liver fibrosis: Status: Acute (10) Steatosis, liver: Status: Acute (11) S/P laparoscopic sleeve gastrectomy: Status: Acute DS: Summary Hospital Course Hospital Course: ADMITTING DIAGNOSIS: morbid obesity,?RA, CHAS on CPAP, anxiety, depression, HTN DISCHARGE DIAGNOSIS: same, s/p laparoscopic sleeve gastrectomy and gastropexy PAST SURGICAL HISTORY:? PROCEDURE: upper endoscopy, laparoscopic sleeve gastrectomy and gastropexy DISCHARGE SUMMARY: History of Present Illness: The patient is a? 38? year-old woman with a BMI of? ?36.8 ? kg/m2 and associated co-morbidities as described above. The patient had extensive work-up, lost? 34? lbs preoperatively and was electively scheduled for laparoscopic, possible open sleeve gastrectomy and gastropexy. Risks and complications of the surgery were discussed with the patient in advance, particularly the possibility of , pulmonary embolism, anastomotic leak, bleeding, bowel injury, GERD, cardiac, renal or pulmonary complications. The patient understood all the risks and was in agreement with the surgical plan. Hospital Course: The patient underwent an uneventful laparoscopic sleeve gastrectomy with rosalia ropexy on the day of admission. Postoperatively, the patient was transferred to the surgical floor. The patient received IV Acetaminophen and IV dilaudid for pain control. Patient was started on bariatric phase 1 diet POD #0. On postoperative day one, the patient was feeling well without nausea, vomiting, fevers, or tachycardia. The patient had some mild incisional pain and the abdomen was soft.? On the morning of postoperative day one, the patient was continued on 1 ounce of water or ice every half hour. During the day, the patient did fairly well, having some incisional pain, but able to ambulate adequately and to tolerate liquids well. Since the patient is doing well, we decided that the patient was ready to be discharged. The patient was given instructions to follow-up with me next week and to call my office for any fever over 101, persistent abdominal pain, nausea, vomiting, GERD, symptoms of DVT such as calf tenderness, or leg swelling, or pulmonary embolism such as chest pain or shortness of breath.? The patient was also instructed to drink 40-60 ounces of liquids per day using the 1-ounce cups. The patient had been given prescriptions for Tylenol for pain, Zofran prn for nausea, and pantoprazole and carafate previously. The patient was encouraged to ambulate and use the incentive spirometer. The patient was allowed to shower, but no baths, and encouraged to stay active at home. All of these instructions were given to the patient personally. All questions were answered and the patient understood all instructions, the instructions were also given to the patient in print. Time Attestation Discharge Coordination Time (in mins): 30 Quality: Safe Use of Opioids Does Pt have an Active Cancer Diagnosis on the Problem List?: No Quality: Stroke Does the patient have a stroke diagnosis?: No Physical Exam Vital Signs: Vital Signs: Last Vital Signs Temp 98.4 F 08/06/23 12:45 Pulse 54 08/06/23 12:55 Resp 16 08/06/23 12:55 BP 145/86 H 08/06/23 12:55 Pulse Ox 100 08/06/23 12:55 O2 Del Method Simple Mask 08/06/23 12:55 O2 Flow Rate 6 08/06/23 12:55 BMI result Body Mass Index 36.8 DS: Data Data Completed and Pending Pending studies at discharge: Pending at discharge 08/06/23 12:14 Surgical [PTH] Routine Labs on day of discharge: Laboratory Results - last 24 hr 08/06/23 08/06/23 08/06/23 08:00 08:56 09:21 Sodium 144 Potassium 5.2 H D Chloride 108 Carbon Dioxide 27 Anion Gap 14 POC Glucose 80 Urine Test NEGATIVE Discharge Plan Discharge Anticipated Discharge Date/Time: 08/07/23 10:00 Patient Disposition: Home Health Service Discharge Diagnosis: obesity s/p laparoscopic sleeve gastrectomy Referrals: [facility] [Other] - 1 Week Zabrina Kaur NP [Primary Care Provider] - 1 Week Discharge Medications: Continued sertraline 50 mg tablet 50 mg PO DAILY pantoprazole 40 mg tablet,delayed release (DR/EC) 40 mg PO DAILY Qty: 90 0RF pantoprazole 40 mg tablet,delayed release (DR/EC) 40 mg PO DAILY Qty: 90 0RF sucralfate 100 mg/mL suspension 10 ml PO BID Qty: 600 2RF ondansetron 4 mg tablet,disintegrating 4 mg PO BID Qty: 20 0RF Rx Instructions: Only take one every 12 hours as needed if you have nausea Discontinued esomeprazole magnesium 40 mg capsule,delayed release(DR/EC) 40 mg PO DAILY Qty: 90 0RF methotrexate sodium 2.5 mg tablet 2.5 mg PO DIRECTED folic acid 1 mg tablet 1 mg PO DAILY benazepril-hydrochlorothiazide 20-25 mg tablet 1 tab PO DAILY polyethylene glycol 3350 [Miralax] 17 gram powder in packet 17 g PO DAILY Qty: 14 0RF Rx Instructions: Mix each packet with 8oz of water, Crystal light, or Gatorade zero, or Propel and do 7 packets on 08/04/23 and another 7 packets on 08/05/23 thiamine HCl (vitamin B1) 100 mg tablet 100 mg PO DAILY Qty: 30 2RF Discharge Orders: Discharge Order (Routine); Ordered 08/07/23 Ordered By: Oscar Yeh Activity on Discharge: No heavy lifting Stand Alone Forms: Patient Portal Discharge page Print Language: Prydeinig Care Plan Goals: weight loss Health Concerns: obesity Plan of Treatment: No tub baths, sex or returning to work until discussed at first post op appointment. No alcohol, tobacco or illegal drug use. Continue to use incentive spirometer hourly while awake. Walk in home for 5- 10 minutes every 2 hours during the first week. Wear abdominal binder with activity. Follow all meal plan instructions from your bariatric surgeon. Review bariatric handbook and call with any questions. Discharge Instructions 1. Please call your doctor or come back to the emergency room should any new symptoms arise. 2. Activity: abstain from alcohol,? limited stair climbing, no bending, no driving, no exercise, no illicit substances, no lifting, no sex, no tub bath, no work. 4. Diet: follow your bariatric surgeons recommendations for advancing diet. 5. Dressing Change/Wound Care: Your incisions are covered with waterproof dressings. You can shower with these and pat dry. Do not rub over dressings or incisions. If the area is tender, you may apply an ice pack for short intervals (no more than 20 minutes on, followed by at least 20 minutes off). Do not apply heat. Do not use creams, lotions, or topical antibiotics unless instructed to do so by your surgeon. 6. Call your doctor if: - Your temperature exceeds 101.5 F - You experience excessive pain or swelling - You have an unexpected reaction to medication - You have excessive bleeding - You experience continued vomiting/nausea - Your incision begins to separate - Your incision shows signs of infection such as increased redness, swelling, excessive pain, heat, or drainage (light blood or clear fluid is normal) General instructions: No lifting greater than 10 lbs for the next 6 weeks[address] within 24 hours of taking narcotic pain medications. If you do not move your bowels in the next 2 days, please take milk of magnesia over the counter. Please follow the post op diet and do not advance your diet until you are seen in the office in about 2 weeks. Please walk around your home every hour or two to prevent blood clots from forming in your legs. You do not need to wake from sleeping to walk. Please sleep in a bed or couch to prevent kinking at the hips and knees. Please take your incentive spirometer (your lung certified medical biller) home with you and use it for the next few days to prevent pneumonias. You may shower, no hot tubs, baths or swimming pools. Please call the office with any questions or concerns such as increasing abdominal pain, fever, chills, shortness of breath, chest pain, leg pain or swelling, or redness or drainage from your incisions. Please make sure you are consuming 40-60 ounces of total fluids per day. Avoid all carbonation. Do not hesitate to contact the office with any questions at . The patient's medical history has been reviewed and they are considered low risk for post op DVT and therefore DVT prophylaxis is not considered necessary. Travel after surgery was reviewed. The patient has not disclosed any travel plans during the first 30 days after surgery and they have been advised that within the first 30 days after surgery any bus, plane, train or car travel over 2 hours in duration is contraindicated due to the possibility of developing blood clots from immobility. Any travel, needs to include periods of ambulation of 10 minutes in duration every 2 hours.? The patient was instructed to discuss any plans for travel during this period with their bariatric surgeon. Assessment: s/p laparoscopic sleeve gastrectomy with gastropexy Discharge Date/Time: 08/07/23 09:54
[2023-08-06 13:22] LABS: Hematocrit 37.4 % (37.0-47.0); Hemoglobin 12.2 g/dl (12.0-16.0)
[2023-08-06 13:37] LABS: Anion Gap 15 (12-20); Blood Urea Nitrogen 14 mg/dL (9-16); Calcium 9.4 mg/dL (8.4-10.2); Carbon Dioxide 23 mmol/L (22-29); Chloride 107 mmol/L (96-108); Creatinine Clr Calc Pharmacy 114.1; Estimated Glomerular Filt Rate > 60; Glucose Random 121 mg/dL (60-115); Potassium 4.3 mmol/L (3.3-5.1); Sodium 141 mmol/L (135-145)
[2023-08-06] MEDS: fentaNYL citrate/PF 100 MCG/2 ML VIAL 25 MCG IVPUSH (16:08)
--- NOTE | 2023-08-06 17:17 | PC.NURSE ---
Message sent to ADVERTISING DISPATCH CLERKS SUPERVISOR Komal to make sure doctor is aware of patient HR 47,patient still in PACU
[2023-08-06] MEDS: 0.9 % Sodium Chloride Flush 3 ML SYRINGE IVFLUSH (18:07)
[2023-08-06] MEDS: Lactated Ringers 1,000 ML 100 ML IVCONT (18:08)
[2023-08-06] MEDS: Acetaminophen 1,000 MG/100 ML PIGGYBACK 16.7 MG IV ×2 (18:10→23:05)
[2023-08-06] MEDS: ondansetron HCL 4 MG/2 ML VIAL IVPUSH (19:15)
[2023-08-06] MEDS: Famotidine/PF 20 MG/2 ML VIAL IVPUSH (20:28)
[2023-08-06] MEDS: HYDROmorphone HCl 0.5 MG/0.5 ML SYRINGE 0.25 MG IVPUSH (20:28)
[2023-08-07] MEDS: ondansetron HCL 4 MG/2 ML VIAL IVPUSH (03:15)
[2023-08-07 04:00] VITALS: BP 148/72; PULSE 43; RESP 16; TEMP 36; O2SAT 97
[2023-08-07] MEDS: Lactated Ringers 1,000 ML 100 ML IVCONT (04:21)
[2023-08-07 04:26] VITALS: PULSE 48
[2023-08-07] MEDS: Acetaminophen 1,000 MG/100 ML PIGGYBACK 16.7 MG IV (04:44)
[2023-08-07 05:14] VITALS: RESP 16
[2023-08-07 06:55] LABS: Basophils Percent Auto 0.1 % (0-2); Hematocrit 36.4 % (37.0-47.0); Hemoglobin 12.1 g/dl (12.0-16.0); Imm Gran Abs Auto 0.08 X10*3/uL (0.00-0.03); Imm Gran Pct Auto 0.7 % (0.0-0.4); Lymphocytes Absolute Auto 0.7 X10*3/uL (1.2-4.9); Lymphocytes Percent Auto 6.3 % (20-40); Mean Corpuscular HGB Conc 33.2 g/dl (31.0-35.0); Mean Corpuscular Hemoglobin 27.3 pg (27.0-33.0); Mean Corpuscular Volume 82.2 fL (80.0-98.0); Mean Platelet Volume 11.2 fL (9.4-12.3); Monocytes Absolute Auto 0.5 X10*3/uL (0.1-1.2); Monocytes Percent Auto 4.5 % (2-11); Neutrophils Absolute Auto 9.5 x10*3/uL (2.0-8.3); Neutrophils Percent Auto 88.4 % (45-73); Red Blood Count 4.43 X10*6/uL (4.20-5.50); Red Cell Distribution Width 15.1 % (11.0-16.0); White Blood Count 10.7 X10*3/uL (4.8-10.8)
[2023-08-07 06:56] LABS: Platelet Count 260 X10*3/uL (160-400)
[2023-08-07 06:57] LABS: Anion Gap 18 (12-20); Blood Urea Nitrogen 13 mg/dL (9-16); Calcium 9.5 mg/dL (8.4-10.2); Carbon Dioxide 18 mmol/L (22-29); Chloride 109 mmol/L (96-108); Creatinine Clr Calc Pharmacy 120.7; Estimated Glomerular Filt Rate > 60; Glucose Random 104 mg/dL (60-115); Potassium 4.7 mmol/L (3.3-5.1); Sodium 140 mmol/L (135-145)
[2023-08-07 07:21] VITALS: BP 140/72; PULSE 46; RESP 16; TEMP 36.3; O2SAT 98
--- NOTE | 2023-08-07 09:01 | MHC.CM.PN ---
pt dc home with servies referral to ns
[2023-08-07] MEDS: Famotidine/PF 20 MG/2 ML VIAL IVPUSH (09:08)
--- NOTE | 2023-08-07 14:56 | HO.POSTANES ---
Post Anesthesia Evaluation Post Anesthesia Evaluation Date of Service: 08/07/23 Vital Signs: Vital Signs Temp Pulse Resp BP Pulse Ox O2 Del Method 08/07/23 07:21 97.4 F 46 L 16 140/72 H 98 Room Air 08/07/23 05:14 16 08/07/23 04:26 48 L 08/07/23 04:00 96.8 F 43 L 16 148/72 H 97 CPAP Anesthesia: General Endotracheal-GETA Mental Status: Awake Pain Control: Satisfactory Nausea/Vomiting: None Hydration: Adequate Anesthesia-Related Issues: No Anes. Related Issues
== END 2023-08-07 09:54 | disposition home health service (06) | DRG 403 ==
LOC: HO.SSSA 15:25 → HO.S3 16:55
PROVIDERS: Anesthesiology; Nurse Practitioner; Physician Assistant Surgical; Admitting Provider Surgery; PCP Nurse Practitioner Family; Visit Provider Surgery
PROC: 0DB64Z3 Excision of Stomach, Percutaneous Endoscopic Approach, Vertical (ICD-10-PCS; CPT 43845; principal; 2023-08-06 10:30)
DX: E66.01 Morbid (severe) obesity due to excess calories (principal); K74.00 Hepatic fibrosis, unspecified; F90.9 Attention-deficit hyperactivity disorder, unspecified type; K76.0 Fatty (change of) liver, not elsewhere classified; G47.33 Obstructive sleep apnea (adult) (pediatric); M06.9 Rheumatoid arthritis, unspecified; I10 Essential (primary) hypertension; K21.9 Gastro-esophageal reflux disease without esophagitis; Z68.37 Body mass index [BMI] 37.0-37.9, adult; Z79.899 Other long term (current) drug therapy
CPT/HCPCS: 36415; 80048; 80051; 80053; 80061; 81025; 82947; 83036; 83525; 84443; 85014; 85018; 85025; 85610; 85730; 86140; 86850; 86900; 86901; 88304; 88305; 88307; 88342; 93005; 94660; A4649; C9145; J0131; J0690; J1100; J1170; J2250; J2405; J2550; J2704; J2795; J3010; J7120

== ENCOUNTER → 2023-08-06 07:53 | Outpatient (BNV) | payer BC, MEDICAID, SELFPAY | PROVIDERS: Admitting Provider Surgery; PCP Nurse Practitioner Family; Visit Provider Surgery | DX: E66.01 Morbid (severe) obesity due to excess calories (principal); Z68.39 Body mass index [BMI] 39.0-39.9, adult; Z90.3 Acquired absence of stomach [part of]; Z98.84 Bariatric surgery status | CPT/HCPCS: 43659; 43775; 99024 ==

== ENCOUNTER 2023-08-13 10:22 | Outpatient (AMB) | payer BC, MEDICAID, SELFPAY ==
--- NOTE | 2023-08-13 11:12 | MHC.OFFVISWM ---
Intake VS Expanded 08/13/23 11:25 BP 122/78 Blood Pressure Location Rt brachial Blood Pressure Position Sitting Pulse 68 Pulse Source Pulse Oximeter Temp 97.3 F Temperature Source Temporal Artery Scan Pulse Oximetry 98 Oxygen Delivery Method Room Air Height 5 ft 3 in Weight 198 lb 6.4 oz BMI 35.1 Body Fat % 42.0 Body Fat Mass 83.4 Fat Free Mass 114.8 Visceral Fat Rating 9.0 Body Water % 41.5 Body Water Mass 82.2 Muscle Mass/Score 109.2 Basal Metabolic Rate/Score 1,610 Intake Visit Reasons: (OV) PO LSG 08/06/23 Allergies No Known Allergies Allergy (Verified 08/13/23 11:19) HPI HPI Comments History of Present Illness Details Patient is a pleasant 38-year-old female who returns to the office today in follow-up. She is 6 days post sleeve gastrectomy performed on 08/06/2023. She states she is tolerating celebrate 4 in 1 protein shakes, 3 per day, 1 scoop each and approximately 50 to 55 oz of fluids daily. She is moved her bowels and denies any significant pain. [facility] Medical History GERD (gastroesophageal reflux disease) Obesity IUD (intrauterine device) in place Rheumatoid arthritis Obstructive sleep apnea on CPAP Anxiety Depression Hypertension Morbid obesity Surgical History Hx of esophagogastroduodenoscopy (05/15/23) Hx of section Family History Paternal Uncle Cancer of pancreas Paternal Aunt Breast cancer Social History Household Members: Spouse Housing: Apartment Are you a primary manager managed care to a significant other at home: Yes (children, supportive ) Do you presently have visiting nurse or other home services: No 75 years or older and lives alone: No Alcohol intake: current Alcohol intake frequency: does not drink Alcohol type: wine and other Patient Tobacco Use Status: Never used Tobacco Substance Use Type: Marijuana Current occupational status: employed Physical Exam Vital Signs: Last Vital Signs Temp 97.3 F 08/13/23 11:25 Pulse 68 04/09/24 11:25 BP 122/78 08/13/23 11:25 Pulse Ox 98 08/13/23 11:25 Oxygen Delivery Method Room Air 08/13/23 11:25 BMI result Body Mass Index 35.1 GI Inspection: Yes incision (Clean, dry, intact.) Assessment & Plan Assessment & Plan (1) S/P laparoscopic sleeve gastrectomy: Code(s): Z98.84 - Bariatric surgery status Plan: POD 6 s/p LSG on 08/06/[address] Yeh Weight loss prior to surgery was 32.1 pounds or 13.2 % TBWL. Original weight on 03/24/2023 was 242.6 pounds and op weight was 210.5 pounds. Be sure to text Dr Yeh exactly 1 week after surgery your weight from your home scale so he can adjust your meal plan. Continue meal plan until f/u w Adore in 2 weeks May shower, no submersion in bath for another week Continue abdominal binder with activity and exercise for the next 2 weeks. Exercise prior to surgery was treadmill, may resume No abdominal exercises for 6 weeks post operatively Will be emailed link to post op video for review Reminded of the pace of drinking, 2 mL per minute, 1 oz/15 min. Coding Level of Care Code Global (73942) Diagnoses S/P laparoscopic sleeve gastrectomy Z98.84
[2023-08-13 11:25] VITALS: BP 122/78; PULSE 68; TEMP 36.3; O2SAT 98; BMI 35.1
== END 2023-08-13 11:36 | disposition home or self-care (01) ==
PROVIDERS: PCP Nurse Practitioner Family; Visit Provider Physician Assistant Surgical
DX: E66.9 Obesity, unspecified (principal); Z68.35 Body mass index [BMI] 35.0-35.9, adult; Z90.3 Acquired absence of stomach [part of]; Z98.84 Bariatric surgery status
CPT/HCPCS: 99024

== ENCOUNTER → 2023-08-13 10:22 | Outpatient (BNVA) | payer BC, MEDICAID, SELFPAY | PROVIDERS: PCP Nurse Practitioner Family; Visit Provider Physician Assistant Surgical ==

== ENCOUNTER 2023-08-29 11:51 | Outpatient (AMB) | payer BC, MEDICAID, SELFPAY ==
--- NOTE | 2023-08-29 11:53 | MHC.OFFVISWM ---
VS Expanded 08/29/23 11:59 BP 126/83 Blood Pressure Location Rt brachial Blood Pressure Position Sitting Pulse 61 Pulse Source Pulse Oximeter Temp 96.4 F L Temperature Source Temporal Artery Scan Pulse Oximetry 61 L Oxygen Delivery Method Room Air Height 5 ft 3 in Weight 194 lb 12.8 oz BMI 34.5 Body Fat % 39.8 Body Fat Mass 77.4 Fat Free Mass 117.2 Visceral Fat Rating 9.0 Body Water % 43.1 Body Water Mass 84.0 Muscle Mass/Score 111.4 Basal Metabolic Rate/Score 1,629 Intake Visit Reasons: (OV) PO LSG 08/06/23 Allergies No Known Allergies Allergy (Verified 08/29/23 12:03) Medication List - Last Reconciled 08/29/23 by LENA Monzon pantoprazole 40 mg PO DAILY sertraline 50 mg PO DAILY sucralfate 10 mL PO BID HPI Comments Details: This?is a?38?yo female who is s/p LSG 08/06/2023. Presents for 3 week post op visit. Weight at last visit on 08/13/2023 was 198.4 pounds with a BMI of 35.1, weight today is 194.8 pounds, representing a 3.6 pound weight loss with a BMI today of 34.5.? No complaints of nausea, emesis, abdominal pain or reflux, or constipation. Present meal plan includes: 8-10am Celebrate 4:1 2 scoops 11am-1pm Celebrate 4:1 2 scoops 2-4pm Rebuild 1 scoop 5-8pm Celebrate bar getting adequate hydration Exercise routine includes: treadmill 300 calories daily PFSH Medical History (Updated 08/15/23 @ 00:01 by Ramakrishna Aden) BMI 37.0-37.9, adult GERD (gastroesophageal reflux disease) Obesity IUD (intrauterine device) in place Rheumatoid arthritis Obstructive sleep apnea on CPAP Anxiety Depression Hypertension Morbid obesity Surgical History (Updated 08/29/23 @ 12:04 by Cailin Rubio CMA) Hx of laparoscopic partial gastrectomy Hx of esophagogastroduodenoscopy (05/15/23) Hx of section Family History Paternal Uncle Cancer of pancreas Paternal Aunt Breast cancer Social History Household Members: Spouse Housing: Apartment Are you a primary aged or disabled care worker to a significant other at home: Yes (children, supportive ) Do you presently have visiting nurse or other home services: No 75 years or older and lives alone: No Alcohol intake: current Alcohol intake frequency: does not drink Alcohol type: wine and other Patient Tobacco Use Status: Never used Tobacco Substance Use Type: Marijuana Current occupational status: employed Physical Exam Vital Signs: Last Vital Signs Temp 96.4 F L 08/29/23 11:59 Pulse 61 08/29/23 11:59 BP 126/83 08/29/23 11:59 Pulse Ox 61 L 08/29/23 11:59 Oxygen Delivery Method Room Air 08/29/23 11:59 BMI result Body Mass Index 34.5 Assessment & Plan Assessment & Plan (1) Obesity: Code(s): E66.9 - Obesity, unspecified Category: Medical Qualifiers: Obesity type: due to excess calories Obesity classification: adult class 2 (BMI 35 - 39.9) Serious obesity comorbidity presence: with serious comorbidity Body mass index: BMI 39.0-39.9 Qualified Code(s): E66.01 - Morbid (severe) obesity due to excess calories; Z68.39 - Body mass index [BMI] 39.0-39.9, adult (2) S/P laparoscopic sleeve gastrectomy: Code(s): Z98.84 - Bariatric surgery status Category: Surgical Plan Continue meal plan per Dr. Jones, scheduled to send weekly weight again next Saturday. Reviewed no heavy lifting until 6w postop. RTC 2 weeks. Patient is obese and is not considered stable at this time. I spent a total of 30 minutes reviewing/updating records, examining the patient and counseling the patient on weight management as detailed above.
[2023-08-29 11:59] VITALS: BP 126/83; PULSE 61; TEMP 35.8; O2SAT 61; BMI 34.5
== END 2023-08-29 12:27 | disposition home or self-care (01) ==
PROVIDERS: PCP Nurse Practitioner Family; Visit Provider Physician Assistant Surgical
DX: E66.01 Morbid (severe) obesity due to excess calories (principal); Z68.39 Body mass index [BMI] 39.0-39.9, adult; Z98.84 Bariatric surgery status
CPT/HCPCS: 99024

== ENCOUNTER → 2023-08-29 11:51 | Outpatient (BNVA) | payer BC, MEDICAID, SELFPAY | PROVIDERS: PCP Nurse Practitioner Family; Visit Provider Physician Assistant Surgical ==

== ENCOUNTER 2023-09-16 11:43 | Outpatient (AMB) | payer BC, MEDICAID, SELFPAY ==
--- NOTE | 2023-09-16 11:34 | MHC.OFFVISWM ---
VS Expanded 09/16/23 11:38 Height 5 ft 3 in Weight 191 lb BMI 33.8 Intake Visit Reasons: (TV) PO LSG 08/06/23 Allergies No Known Allergies Allergy (Verified 08/29/23 12:03) Medication List - Last Reconciled 09/16/23 by LENA Monzon methotrexate sodium 2.5 mg PO QWEEK pantoprazole 40 mg PO DAILY sertraline 50 mg PO DAILY sucralfate 10 mL PO BID HPI Comments Details: This?is a?38?yo female who is s/p LSG 08/06/2023. Presents for 5 week post op visit. Weight at last visit on 08/29/2023 was 194.8 pounds with a BMI of 34.5, weight today is 191 pounds, representing a 3.8 pound weight loss with a BMI today of 33.8.? No complaints of nausea, emesis, abdominal pain or reflux, or constipation. Has resumed methotrexate per Dr. Ruiz Present meal plan includes: 8-10am Celebrate 4:1 2 scoops 11am-1pm Celebrate 4:1 2 scoops 2-4pm Rebuild 1 scoop 5-8pm Celebrate bar getting adequate hydration Exercise routine includes: treadmill 350 calories daily PENDING SALE TO [facility] Medical History (Updated 08/15/23 @ 00:01 by Ramakrishna Aden) BMI 37.0-37.9, adult GERD (gastroesophageal reflux disease) Obesity IUD (intrauterine device) in place Rheumatoid arthritis Obstructive sleep apnea on CPAP Anxiety Depression Hypertension Morbid obesity Surgical History (Updated 08/29/23 @ 12:04 by Cailin Rubio CMA) Hx of laparoscopic partial gastrectomy Hx of esophagogastroduodenoscopy (05/15/23) Hx of section Family History Paternal Uncle Cancer of pancreas Paternal Aunt Breast cancer Social History Household Members: Spouse Housing: Apartment Are you a primary child care cook to a significant other at home: Yes (children, supportive ) Do you presently have visiting nurse or other home services: No 75 years or older and lives alone: No Alcohol intake: current Alcohol intake frequency: does not drink Alcohol type: wine and other Patient Tobacco Use Status: Never used Tobacco Substance Use Type: Marijuana Current occupational status: employed Telehealth Telehealth Telehealth Platform: Telephone Location of provider rendering services: practice address Location of patient: address on file Patient Identification confirmed using: Name, : Yes Telehealth method: voice only Patient verbally consented to treatment: Yes Patient verbally consented to billing insurance company: Yes Patient informed of any privacy concerns related to visit: Yes Assessment & Plan Assessment & Plan (1) S/P laparoscopic sleeve gastrectomy: Code(s): Z98.84 - Bariatric surgery status Category: Surgical (2) Obesity: Code(s): E66.9 - Obesity, unspecified Category: Medical Qualifiers: Obesity type: due to excess calories Obesity classification: adult class 2 (BMI 35 - 39.9) Serious obesity comorbidity presence: with serious comorbidity Body mass index: BMI 39.0-39.9 Qualified Code(s): E66.01 - Morbid (severe) obesity due to excess calories; Z68.39 - Body mass index [BMI] 39.0-39.9, adult Plan Pt to send measurements to Dr Jones tomorrow and follow any meal plan adjustments. She has stopped taking carafate and PPI due to lack of insurance coverage. She will let me know if she experiences any symptoms of reflux. Cleared for heavy lifting at 6 weeks postop. RTC 1 month. Patient is obese and is not considered stable at this time. I spent a total of 30 minutes reviewing/updating records, examining the patient and counseling the patient on weight management as detailed above.
[2023-09-16 11:38] VITALS: BMI 33.8
== END 2023-09-16 11:45 | disposition home or self-care (01) ==
LOC: HO.HBS 11:43
PROVIDERS: PCP Nurse Practitioner Family; Visit Provider Physician Assistant Surgical
DX: E66.09 Other obesity due to excess calories (principal); Z68.33 Body mass index [BMI] 33.0-33.9, adult; Z90.3 Acquired absence of stomach [part of]; Z98.84 Bariatric surgery status
CPT/HCPCS: 99024

== ENCOUNTER → 2023-09-16 11:43 | Outpatient (BNVA) | payer BC, MEDICAID, SELFPAY | PROVIDERS: PCP Nurse Practitioner Family; Visit Provider Physician Assistant Surgical ==

== ENCOUNTER 2023-10-28 09:49 | Outpatient (AMB) | payer BC, SELFPAY ==
--- NOTE | 2023-10-28 09:37 | MHC.OFFVISWM ---
VS Expanded 10/28/23 09:38 Height 5 ft 3 in Weight 174 lb BMI 30.8 Intake Visit Reasons: PO LSG 08/06/23 Allergies No Known Allergies Allergy (Verified 08/29/23 12:03) Medication List - Last Reconciled 10/28/23 by LENA Monzon methotrexate sodium 2.5 mg PO QWEEK sertraline 50 mg PO DAILY HPI Comments Details: This?is a?38?yo female who is s/p LSG 08/06/2023. Presents for 2.5 month post op visit. Weight at last visit on 09/16/2023 was 191 pounds with a BMI of 33.8, weight today is 174 pounds, representing a 17 pound weight loss with a BMI today of 30.8.? No complaints of nausea, emesis, abdominal pain or reflux, or constipation. Present meal plan includes: 8-10am Celebrate 4:1 1 scoop 11am-1pm Celebrate 4:1 1 scoop 2-4pm Celebrate 2 scoops 5-8pm Celebrate bar getting adequate hydration Exercise routine includes: treadmill 350 calories daily [facility] Medical History (Updated 08/15/23 @ 00:01 by [facility]) BMI 37.0-37.9, adult GERD (gastroesophageal reflux disease) Obesity IUD (intrauterine device) in place Rheumatoid arthritis Obstructive sleep apnea on CPAP Anxiety Depression Hypertension Morbid obesity Surgical History (Updated 08/29/23 @ 12:04 by Cailin Rubio CMA) Hx of laparoscopic partial gastrectomy Hx of esophagogastroduodenoscopy (05/15/23) Hx of section Family History Paternal Uncle Cancer of pancreas Paternal Aunt Breast cancer Social History Household Members: Spouse Housing: Apartment Are you a primary auto care center 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 to a significant other at home: Yes (children, supportive ) Do you presently have visiting nurse or other home services: No 75 years or older and lives alone: No Alcohol intake: current Alcohol intake frequency: does not drink Alcohol type: wine and other Patient Tobacco Use Status: Never used Tobacco Substance Use Type: Marijuana Current occupational status: employed Telehealth Telehealth Telehealth Platform: Telephone Location of provider rendering services: other Location of patient: address on file Patient Identification confirmed using: Name, : Yes Telehealth method: voice only Patient verbally consented to treatment: Yes Patient verbally consented to billing insurance company: Yes Patient informed of any privacy concerns related to visit: Yes Minutes spent on Phone/Video with Pt.: 12 Assessment & Plan Assessment & Plan (1) S/P laparoscopic sleeve gastrectomy: Code(s): Z98.84 - Bariatric surgery status Category: Medical (2) Obesity: Code(s): E66.9 - Obesity, unspecified Category: Medical Qualifiers: Obesity type: due to excess calories Obesity classification: adult class 2 (BMI 35 - 39.9) Serious obesity comorbidity presence: with serious comorbidity Body mass index: BMI 39.0-39.9 Qualified Code(s): E66.01 - Morbid (severe) obesity due to excess calories; Z68.39 - Body mass index [BMI] 39.0-39.9, adult Plan Pt due to send weight measurements to Dr. Jones tomorrow, will adjust meal plan at that time if appropriate. No reflux off PPI/carafate. Continue exercise with goal 2000cal/week burned. RTC 1 month. Patient is obese and is not considered stable at this time. I spent a total of 30 minutes reviewing/updating records, examining the patient and counseling the patient on weight management as detailed above.
[2023-10-28 09:38] VITALS: BMI 30.8
== END 2023-10-28 09:57 | disposition home or self-care (01) ==
LOC: HO.HBS 09:49
PROVIDERS: PCP Nurse Practitioner Family; Visit Provider Physician Assistant Surgical
DX: E66.01 Morbid (severe) obesity due to excess calories (principal); Z68.39 Body mass index [BMI] 39.0-39.9, adult; Z90.3 Acquired absence of stomach [part of]; Z98.84 Bariatric surgery status
CPT/HCPCS: 99024

== ENCOUNTER → 2023-10-28 09:49 | Outpatient (BNVA) | payer BC, SELFPAY | PROVIDERS: PCP Nurse Practitioner Family; Visit Provider Physician Assistant Surgical ==

== ENCOUNTER 2023-12-10 09:21 | Outpatient (AMB) | payer BC, SELFPAY ==
--- NOTE | 2023-12-10 09:06 | MHC.OFFVISWM ---
VS Expanded 12/10/23 09:09 Height 5 ft 3 in Weight 171 lb 3 oz BMI 30.3 Intake Visit Reasons: TELEPHONE PO LSG 08/06/23 Allergies No Known Allergies Allergy (Verified 08/29/23 12:03) Medication List - Last Reconciled 12/10/23 by LENA Monzon folic acid 1 mg PO DAILY methotrexate sodium 2.5 mg PO QWEEK sertraline 50 mg PO DAILY HPI Comments Details: This?is a?38?yo female who is s/p LSG 08/06/2023. Presents for 4 month post op visit. Weight at last visit on 10/28/2023 was 174 pounds with a BMI of 30.8, weight today is 171.3 pounds, representing a 2.7 pound weight loss with a BMI today of 30.3.? No complaints of nausea, emesis, abdominal pain or reflux, or constipation. Present meal plan includes: has added additional food getting sick of shakes Exercise routine includes: treadmill, strength training, 30 min outside walk/jog [facility] Medical History (Updated 08/15/23 @ 00:01 by Ramakrishna Aden) BMI 37.0-37.9, adult GERD (gastroesophageal reflux disease) Obesity IUD (intrauterine device) in place Rheumatoid arthritis Obstructive sleep apnea on CPAP Anxiety Depression Hypertension Morbid obesity Surgical History (Updated 08/29/23 @ 12:04 by Cailin Rubio [facility]) Hx of laparoscopic partial gastrectomy Hx of esophagogastroduodenoscopy (05/15/23) Hx of section Family History Paternal Uncle Cancer of pancreas Paternal Aunt Breast cancer Social History Household Members: Spouse Housing: Apartment Are you a primary health care facility administrator to a significant other at home: Yes (children, supportive ) Do you presently have visiting nurse or other home services: No 75 years or older and lives alone: No Alcohol intake: current Alcohol intake frequency: does not drink Alcohol type: wine and other Patient Tobacco Use Status: Never used Tobacco Substance Use Type: Marijuana Current occupational status: employed Physical Exam Vital Signs: BMI result Body Mass Index 30.3 Telehealth Telehealth Telehealth Platform: Telephone Location of provider rendering services: practice address Location of patient: address on file Patient Identification confirmed using: Name, : Yes Telehealth method: voice only Patient verbally consented to treatment: Yes Patient verbally consented to billing insurance company: Yes Patient informed of any privacy concerns related to visit: Yes Minutes spent on Phone/Video with Pt.: 15 Assessment & Plan Assessment & Plan (1) S/P laparoscopic sleeve gastrectomy: Code(s): Z98.84 - Bariatric surgery status Category: Surgical (2) Obesity: Code(s): E66.9 - Obesity, unspecified Category: Medical Qualifiers: Body mass index: BMI 39.0-39.9 Obesity classification: adult class 2 (BMI 35 - 39.9) Obesity type: due to excess calories Serious obesity comorbidity presence: with serious comorbidity Qualified Code(s): E66.01 - Morbid (severe) obesity due to excess calories; Z68.39 - Body mass index [BMI] 39.0-39.9, adult Plan Pt needs better meal plan, weight loss has stalled- 1 Premier shake with 1 scoop in 8oz UAM 1 bar- Fitcrunch, Atkins, Celebrate or Zone 1 Filipino yogurt 1 meal 4f/4f Discussed starting MVI/Ca now that she is no longer using Celebrate shakes RTC 2 months for 6 month appt, texted meal plan to pt, encouraged her to reach out to me between appts with any concerns. I spent a total of 30 minutes reviewing/updating records, examining the patient and counseling the patient on weight management as detailed above.
[2023-12-10 09:09] VITALS: BMI 30.3
== END 2023-12-10 09:31 | disposition home or self-care (01) ==
LOC: HO.HBS 09:21
PROVIDERS: PCP Nurse Practitioner Family; Visit Provider Physician Assistant Surgical
DX: E66.9 Obesity, unspecified (principal); Z68.30 Body mass index [BMI] 30.0-30.9, adult; Z90.3 Acquired absence of stomach [part of]; Z98.84 Bariatric surgery status
CPT/HCPCS: 99214

== ENCOUNTER → 2023-12-10 09:21 | Outpatient (BNVA) | payer BC, SELFPAY | PROVIDERS: PCP Nurse Practitioner Family; Visit Provider Physician Assistant Surgical ==

== ENCOUNTER 2024-08-08 09:28 | Outpatient (REF) | payer OTHER, SELFPAY ==
--- OUTSIDE RECORDS SUMMARY | 2024-08-08 09:30 | XMS_ITS | Clinical Summary ---
Author Organization [place] [address] [address] [facility] Building Address [address] [place] [address] Phone Care Team Providers Care Varnish Remover Name Role Phone Zabrina Kaur NP Primary Care Provider [phone] Allergies No known active allergies Medications methotrexate 2.5 mg tablet Take 1 Tablet by mouth. Active norethindrone (STEVE,TUNG,HE ATHER,MICRONOR) 0.35 mg tablet Take 1 tablet (0.35 mg total) by mouth 1 (one) time each day. 28 tablet 11 07/03/2024 Active Active Problems Problem Noted Date Diagnosed Date Obesity, unspecified 11/10/2007 Transient hypertension of , antepartum 07/10/2007 Overview (06/22/2024): 06/17/2007: Blood pressure elevated with a diastolic pressure of 90; PIH labs normal; uric acid was 3.8. 07/04/2007: PIH labs normal at [facility]; uric acid was 4.8 07/06/2007: PIH labs normal at [facility]; uric acid was 4.7 07/10/2007: Labetalol 300 mg bid started. ANDRZEJ GRACE MD 07/11/2007: Labetalol increased to 600 mg bid. ANDRZEJ GRACE MD 07/14/2007: Blood pressure still elevated. She was switched to Aldomet 250 mg tid. ANDRZEJ GRACE MD 07/22/2007: Blood pressure much improved on Aldomet. ANDRZEJ GRACE MD 07/28/2007: She is spilling 4+ protein today; we will proceed with induction of labor. ANDRZEJ GRACE MD 08/08/2007: Post- visit. Patient still taking methyldopa 500 mg tid and her blood pressure is very good today; I will have her decrease her dose to twice daily and have her return in two weeks for a blood pressure check. ANDRZEJ GRACE MD Encounters Date Type Department Care Team Description 07/14/2024 Telephone Obstetrics [facility]necology - [facility] [address] [place] [phone] Vannessa Young CNM 07/13/2024 3:42 PM EDT - 07/13/2024 11:59 PM EDT Hospital [facility] at [address] [phone] Discharge Disposition: Home or Self Care 07/10/2024 [facility] [address] Vannessa Young CNM Results 07/03/2024 2:30 PM EST Office Visit Obstetrics and Gynecology - [address] [phone] Vannessa Young CNM Encounter for gynecological examination without abnormal finding (Primary Dx); Encounter for IUD removal; control counseling; BCP ( control pills) initiation; Venereal disease screening; Encounter for screening for viral disease; Encounter for screening mammogram for malignant neoplasm of breast; Current every day vaping; Elevated blood pressure reading from Last 3 Months Surgical History Surgery Date Site/Laterality Comments SECTION 2013 PROCEDURE: HISTORICAL DELIVERY OTHER SURGICAL HISTORY PROCEDURE: VT GASTRIC RSTCV W/O BYP VERTICAL-BANDED GASTROPLY Medical History Medical History Date Comments Obesity, unspecified 11/10/2007 DX:Obesity, unspecified Essential (primary) hypertension DX:Essential (primary) hypertension Depression DX:Depression Family History Medical History Relation Name Comments Breast cancer Aunt Depression Father depression/anxi ety Hyperlipidemia Father Hypertension Father Other: brain aneryms Father Colon cancer Maternal Grandfather Prostate cancer Maternal Grandfather Breast cancer Paternal Grandmother Relation Name Status Comments Aunt Alive Brother Alive Father Alive Maternal Grandfather Maternal Grandmother Alive Mother Alive Paternal Grandfather Alive Paternal Grandmother Alive Sister Alive Social History Tobacco Use Types Packs/Day Years Used Date Smoking Tobacco: Some Days Smokeless Tobacco: Never Tobacco Cessation:Ready to Q uit: No; Counseling Given: Yes Alcohol Use Standard Drinks/Week Comments Yes 0 (1 standard drink = 0.6 oz pur e alcohol) occasioanlly Comments No Sex and Gender Information Value Date Recorded Sex Assigned at Female 07/11/2024 9:48 AM EST Legal Sex Female 12:03 PM EST Gender Identity Female 07/11/2024 9:48 AM EST Sexual Orientation Straight 07/11/2024 9: 48 AM EST Obstetrics History Para Term AB IAB SAB Ectopic Multiple Livin g Live Births 3 2 2 1 1 1 2 Date Outcome GA Total Labor Labor/2nd/3rd Weight Sex Type Anes PTL Lazara A1 A5 Name Clin 2005 SAB 8w0 d Surgic al [place] Decea sed 2007 Term 37w 0d 2608 g (92 oz) M Vag-Sp ont Epidur al Livin g Ernie Chato nne [place] Delivery Location:[facility] 2012 Term F CS-Uns pec Last Filed Vital Signs Vital Sign Reading Time Taken Comments Blood Pressure 160/110 07/03/2024 2:13 PM EST Pulse 65 10/01/2023 3:23 PM EDT Temperature - - Respiratory Rate - - Oxygen Saturation - - Inhaled Oxygen Concentration - - Weight 69.4 kg (153 lb) 07/13/2024 3:53 PM EDT Height 160 cm (5' 3 ) 07/13/2024 3:53 PM EDT Body Mass Index 27.1 07/13/2024 3:53 PM EDT Plan of Treatment Health Maintenance Due Date Last Done Comments DTaP,Tdap,and Td Vaccines (1 - Tdap) 2004 Hepatitis B Vaccines (1 of 3 - 19+ 3-dose series) 2004 Pneumococcal Vaccine: Pediatrics (0 to 5 Years) and At-Risk Patients (6 to 64 Years) (1 of 2 - PCV) 2004 Cholesterol Screening (Lipid Panel) 11/26/2023 Depression Screening 11/26/2023 Hypertension/CHF/CAD Annual BMP Blood Test 11/26/2023 Social Influencers of Health Screening 11/26/2023 COVID-19 Vaccine ( season) 2024 01/23/2021, 07/29/2020, 07/06/2020 Influenza Vaccine (Season Ended) 2025 05/27/2023, 12/25/2021, 01/23/2021, Additional history exists Cervical Cancer Screening: HPV 05/24/2028 05/24/2023 Hepatitis C Screening Completed 07/03/2024 HIV Screening Completed 07/10/2024, 06/07, 07/03/2024, Additional history exists HIB Vaccines Aged Out No longer eligi ble based on patient's age to complete this topic HPV Vaccines Aged Out No longer eligi ble based on patient's age to complete this topic Hepatitis A Vaccines Aged Out No long er eligible based on patient's age to complete this topic IPV Vaccines Aged Out No longer eligi ble based on patient's age to complete this topic MMR Vaccines Aged Out No longer eligi ble based on patient's age to complete this topic Meningococcal ACWY Vaccine Aged Out N o longer eligible based on patient's age to complete this topic Meningococcal B Vacine Aged Out No lo nger eligible based on patient's age to complete this topic RSV Immunization Patients Under 20 months Aged Out No longer eligible based on patient's age to complete this topic Varicella Vaccines Aged Out No longer eligible based on patient's age to complete this topic Procedures Procedure Name Priority Date/Time Associated Diagnosis Comments MG MAMMO DIGITAL SCREENING W JOSE LUIS BILAT Routine 07/13/2024 4:03 PM EDT Encounter for screening mammogram for malignant neoplasm of breast HIV 1 MOLECULAR STUDY QUANTITATIVE Routine 07/10/2024 3:28 PM EST False positive serology for HIV HIV 1 HIV 2 SUPPLEMENTAL ASSAY Routine 07/03/2024 2:55 PM EST Encounter for screening for viral disease TREPONEMA PALLIDUM ANTIBODY WITH REFLEX TO RPR AND PARTICLE AGGLUTINATION Routine 07/03/2024 2:55 PM EST Venereal disease screening HIV 1, 2 ANTIBODY, P24 ANTIGEN WITH REFLEX TO DIFFERENTIATION Routine 07/03/2024 2:55 PM EST Encounter for screening for viral disease HEPATITIS C ANTIBODY Routine 07/03/2024 2:55 PM EST Encounter for screening for viral disease CHLAMYDIA TRACHOMATIS AND NEISSERIA GONORRHOEAE PCR Routine 07/03/2024 2:31 PM EST Venereal disease screening HM HPV Routine 05/24/2023 from Last 3 Months or Most Recently Relevant to Health Maintenance Results * MG Mammo Digital Screening w Jose Luis bilat (07/13/2024 4:03 PM EDT) Anatomical Region Laterality Modality Breast Bilateral Mammography 07/13/2024 4:51 PM EDT Impressions 07/13/2024 4:57 PM EDT No mammographic evidence of malignancy. ?? A negative mammogram in the presence of a clinically suspicious palpable abnormality does not preclude the possibility of malignancy or alter the indications for biopsy. ASSESSMENT: ?? BI-RADS 1: NEGATIVE RECOMMENDATION(S): 1: Routine screening mammogram BILATERAL in 1 year. [facility] [address], [address] -------- FINAL REPORT -------- Dictated By: Jerry Umaña Dictated Date: 07/13/2024 16:51 ET Assigned Physician: Jerry Umaña Reviewed and Electronically Signed By: Jerry Umaña Signed Date: 07/13/2024 16:57 ET Workstation ID: [id number] Transcribed By: Self Edit Transcribed Date: 07/13/2024 16:51 ET Narrative 07/13/2024 4:57 PM EDT EXAM: ??SCREENING MAMMOGRAPHY, BILATERAL HISTORY: ??SCREENING. ??Family history of breast cancer; maternal grandmother and aunt COMPARISON: ??Initial exam TECHNIQUE: Synthesized CC and MLO projections of each breast. ??Tomosynthesis of each breast in the CC and MLO projections. ADDITIONAL IMAGING: None Computer-aided detection was employed with the iCAD ??ProFound AI 3-D. TISSUE DENSITY: There are scattered areas of fibroglandular density. (BI-RADS category B) FINDINGS: RIGHT BREAST: No suspicious mass. No suspicious calcification. No distortion. ?? No additional suspicious right breast findings LEFT BREAST: No suspicious mass. No suspicious calcification. No distortion. ?? No additional suspicious left breast findings Procedure Note Jerry Umaña MD - 07/13/2024 EXAM: SCREENING MAMMOGRAPHY, BILATERAL HISTORY: SCREENING. Family history of breast cancer; maternalgrandmother and aunt COMPARISON: Initial exam TECHNIQUE: Synthesized CC and MLO projections of each breast.Tomosynthesis of each breast in the CC and MLO projections. ADDITIONAL IMAGING: None Computer-aided detection was employed with the iCAD ProFound AI 3-D. TISSUE DENSITY: There are scattered areas of fibroglandular density.(BI-RADS category B) FINDINGS: RIGHT BREAST: No suspicious mass. No suspicious calcification. No distortion. Noadditional suspicious right breast findings LEFT BREAST: No suspicious mass. No suspicious calcification. No distortion. Noadditional suspicious left breast findings IMPRESSION: No mammographic evidence of malignancy. A negative mammogram in the presence of a clinically suspicious palpableabnormality does not preclude the possibility of malignancy or alter theindications for biopsy. ASSESSMENT: BI-RADS 1: NEGATIVE RECOMMENDATION(S): 1: Routine screening mammogram BILATERAL in 1 year. [facility] location[facility] at [address], [address] -------- FINAL REPORT -------- Dictated By: Jerry Umaña Dictated Date: 07/13/2024 16:51 ET Assigned Physician: Jerry Umaña Reviewed and Electronically Signed By: Jerry Umaña Signed Date: 07/13/2024 16:57 ET Workstation ID: [id number] Transcribed By: Self Edit Transcribed Date: 07/13/2024 16:51 ET Vannessa KENNEDY IMG BI PROCEDURES Final Res ult * HIV 1 molecular study quantitative (07/10/2024 3:28 PM EST) [facility] HIV-1 RNA Interpretation Not Detected Not Detected LAB MOLECULAR DIAGNOSTICS METHOD 07/14/2024 12:53 PM EDT [facility] Comment:HIV RNA not detected , unable to report quantitative results. Blood Venous blood specimen / Unknown Venipuncture / Unknown 07/10/2024 3:28 PM EST 07/10/2024 3:28 PM EST [facility] LAB BLOOD ORDERABLES Final Result Performing Organization Address City/[facility]/ZIP Co de Phone Number [facility] [address] [place] [address], [place] [phone] * Hepatitis C antibody (07/03/2024 2:55 PM EST) [facility] Hepatitis C Antibody Negative Negative LAB CHEMISTRY METHOD 07/03/2024 8:28 PM EST [facility] Blood Venous blood specimen / Unknown Venipuncture / Unknown 07/03/2024 2:55 PM EST 07/03/2024 2:55 PM EST [facility] LAB BLOOD ORDERABLES Final Result Performing Organization Address [facility]/ZIP Co de Phone Number [facility] [address] [place] [address], [place] [phone] * (ABNORMAL) HIV 1,2 antibody, p24 antigen with reflex to differentiation (07/03/2024 2:55 PM EST) [facility] HIV Combo AB/AG Positive (A) Negative LAB CHEMISTRY METHOD 07/03/2024 9:48 PM EST [facility] Comment: Positive HIV screen has been sent out for HIV-1/HIV-2 differentiation testing. Patients should not be considered positive for HIV antibodies unless confirmed by the differentiation test. ?? If the differentiation test is negative or indeterminate, HIV viral load testing is recommended. ?? Note--> This test may not be added on due to different specimen requirements. Blood Venous blood specimen / Unknown Venipuncture / Unknown 07/03/2024 2:55 PM EST 07/03/2024 2:55 PM EST Narrative [facility] - 07/03/2024 9:48 PM EST This assay is a 4th generation assay allowing for earlier detection of HIV infection by detecting the presence of the HIV-1 p24 antigen as well as the traditional antibodies to HIV type 1 (including group O) and type 2. ??Use of a 4th generation assay is the current CDC recommendation for HIV screening. [facility] BLOOD ORDERABLES Final Result Performing Organization Address [facility]/ZIP Co de Phone Number [facility] [address] [place] [address], [place] [phone] * Treponema pallidum antibody with reflex to RPR and particle agglutination (07/03/2024 2:55 PM EST) Pathologist [facility] T. Pallidum Antibodies Negative Negative LAB CHEMISTRY METHOD 07/03/2024 8:03 PM EST [facility] Blood Venous blood specimen / Unknown Venipuncture / Unknown 07/03/2024 2:55 PM EST 07/03/2024 2:55 PM EST [facility] LAB BLOOD ORDERABLES Final Result Performing Organization Address [facility]/ZIP Co de Phone Number [facility] [address] [place] [address], [place] [phone] * HIV 1 HIV 2 supplemental assay (07/03/2024 2:55 PM EST) HIV-1 Ab Differentiation NONREAC NON REAC 07/06/2024 3:06 PM EST [facility] HIV-2 Ab Differentiation NONREAC NON REAC 07/06/2024 3:06 PM EST [facility] Comment: HIV-1 NUCLEIC ACID TESTING ON A REPEAT SAMPLE IS RECOMMENDED. This sample is Negative for both HIV-1 and HIV-2 antibodies by the [employer] HIV1/2 Supplemental Assay. Therefore, HIV antibodies were not confirmed. According to an algorithm recommended by the CDC, a sample with this testing profile after an initially reactive HIV screen should be evaluated by HIV-1 nucleic acid testing. Nucleic acid testing cannot be performed on the same specimen used for the initial screen. Please resubmit a new specimen for HIV-1 nucleic acid testing. Test performed at [facility], [address] , [place], [place] ??[address] ? [phone] Yuliet Macias MD, PhD - [employer] Defense Control Officer Blood Venous blood specimen / Unknown Venipuncture / Unknown 07/03/2024 2:55 PM EST 07/03/2024 9:48 PM EST Vannessa Young [facility] BLOOD ORDERABLES Final Result [facility] [address] [place] [address] * Chlamydia trachomatis and Neisseria gonorrhoeae molecular study (07/03/2024 2:31 PM EST) [facility] Neisseria gonorrhoeae PCR Negative Negative LAB MOLECULAR DIAGNOSTICS METHOD 07/04/2024 9:19 AM EST [facility] Chlamydia trachomatis PCR Negative Negative LAB MOLECULAR DIAGNOSTICS METHOD 07/04/2024 9:19 AM EST [facility] Swab Vaginal structure / Unknown Non-blood Collection / Unknown 07/03/2024 2:31 PM EST 07/03/2024 2:31 PM EST Vannessa Young [facility] MICROBIOLOGY - GENERAL ORDERABLES Final Result [facility] [address] [place] [address], [place] [phone] * Cervical Cancer Screening: HPV (05/24/2023) Health system Cervical Cancer Screening: HPV negative, abstracted Historical Provider HEALTH MAINTENANCE Final Result from Last 3 Months or Most Recently Relevant to Health Maintenance [facility] Care Teams Varnish Remover Relationship Specialty Start Date End Date Zabrina Kaur NP [address] [facility] [address] PCP - General Nurse Practitioner 07/13/24
[2024-08-08 09:47] LABS: MANUAL DIFF FLAG NO
[2024-08-08 10:22] LABS: Basophils Percent Auto 0.6 % (0-2); Eosinophils Absolute Auto 0.1 X10*3/uL (0.0-0.4); Eosinophils Percent Auto 1.4 % (0-4); Hematocrit 41.3 % (37.0-47.0); Hemoglobin 13.5 g/dl (12.0-16.0); Imm Gran Abs Auto 0.02 X10*3/uL (0.00-0.03); Imm Gran Pct Auto 0.4 % (0.0-0.4); Lymphocytes Absolute Auto 0.9 X10*3/uL (1.2-4.9); Lymphocytes Percent Auto 18.3 % (20-40); Mean Corpuscular HGB Conc 32.7 g/dl (31.0-35.0); Mean Corpuscular Hemoglobin 28.5 pg (27.0-33.0); Mean Corpuscular Volume 87.1 fL (80.0-98.0); Mean Platelet Volume 9.5 fL (9.4-12.3); Monocytes Absolute Auto 0.5 X10*3/uL (0.1-1.2); Monocytes Percent Auto 10.3 % (2-11); Neutrophils Absolute Auto 3.5 x10*3/uL (2.0-8.3); Platelet Count 333 X10*3/uL (160-400); Red Blood Count 4.74 X10*6/uL (4.20-5.50); Red Cell Distribution Width 13.2 % (11.0-16.0); White Blood Count 5.1 X10*3/uL (4.8-10.8)
[2024-08-08 10:35] LABS: Estimated Average Glucose 91 mg/dL; Hemoglobin A1C 104.0794 umol/L; Hemoglobin A1c % 4.8 % (<6.0); Total Hemoglobin (HGBA1C) 3544.2763 umol/L
[2024-08-08 11:08] LABS: Alanine Aminotransferase 20 U/L (0-31); Albumin Level 4.2 g/dL (3.5-5.0); Alkaline Phosphatase 96 U/L (39-117); Anion Gap 9 (12-20); Aspartate Amino Transferase 24 U/L (5-31); Bilirubin Total 0.3 mg/dL (0.0-1.0); Blood Urea Nitrogen 13 mg/dL (9-16); C Reactive Protein 0.51 mg/dL (< or = 0.50); Calcium 9.3 mg/dL (8.4-10.2); Carbon Dioxide 27 mmol/L (22-29); Chloride 112 mmol/L (96-108); Cholesterol 175 mg/dL (<200); Estimated Glomerular Filt Rate > 60; Glucose Random 74 mg/dL (60-115); HDL Cholesterol 73 mg/dL (>40); Iron 79 mcg/dL (30-160); LDL Cholesterol Calculated 93 mg/dL (<100); Percent Iron Saturation 22 % (15-50); Potassium 4.9 mmol/L (3.3-5.1); Sodium 143 mmol/L (135-145); Total Iron Binding Capacity 354 mcg/dL (228-428); Total Protein 7.5 g/dL (6.5-8.0); Triglycerides 49 mg/dL (<150); Unsaturated Iron Binding 275 ug/dL
[2024-08-08 11:24] LABS: Ferritin 24 ng/mL (10-122); TSH reflex Free T4 1.13 uIU/mL (0.32-4.0); Vitamin D 25-OH Total 35.3 ng/mL (>30)
[2024-08-08 11:26] LABS: Insulin 5 uU/mL (2-29)
[2024-08-08 11:37] LABS: Folate 8.2 ng/mL (> or = 4.0); Vitamin B12 722 pg/mL (200-900)
[2024-08-11 22:14] LABS: Zinc 50 mcg/dL (60-130)
[2024-08-12 18:19] LABS: Vitamin A 49 mcg/dL (38-98)
[2024-08-19 15:48] LABS: Vitamin B1 11 nmol/L (8-30)
== END 2024-08-08 09:29 | disposition home or self-care (01) ==
LOC: HO.LAB 09:28
PROVIDERS: PCP Nurse Practitioner Family; Visit Provider Physician Assistant Surgical
DX: Z98.84 Bariatric surgery status (principal); Z13.1 Encounter for screening for diabetes mellitus
CPT/HCPCS: 36415; 80053; 80061; 82306; 82607; 82728; 82746; 83036; 83525; 83540; 84425; 84443; 84590; 84630; 85025; 86140

== ENCOUNTER 2024-08-10 13:08 | Outpatient (AMB) | payer OTHER, SELFPAY ==
--- NOTE | 2024-08-10 12:37 | MHC.OFFVISWM ---
VS Expanded 08/10/24 12:42 Height 5 ft 3 in Weight 153 lb 2 oz BMI 27.1 Intake Visit Reasons: TV PO LSG 08/06/23 Allergies No Known Allergies Allergy (Verified 08/29/23 12:03) Medication List - Last Reconciled 08/10/24 by LENA Monzon folic acid 1 mg PO DAILY methotrexate sodium 2.5 mg PO QWEEK sertraline 50 mg PO DAILY HPI Comments Details: This?is a?39?yo female who is s/p LSG 08/06/2023. Presents for 1 year post op visit. Weight at last visit on 12/10/2023 was 171.3 pounds, weight today is 153.2 pounds, representing a 18.1 pound weight loss with a BMI today of 27.1.? No complaints of nausea, emesis, abdominal pain or reflux, or constipation. Present meal plan includes: I've reverted back to my old eating habits used Celebrate Rebuild powder, Celebrate bars in the past Exercise routine includes: no current routine, I stay active at my job [employer] [facility] [employer] Medical History (Updated 08/10/24 @ 12:59 by LENA Monzon) BMI 37.0-37.9, adult GERD (gastroesophageal reflux disease) Obesity IUD (intrauterine device) in place Rheumatoid arthritis Obstructive sleep apnea on CPAP Anxiety Depression Hypertension Morbid obesity Surgical History (Updated 08/29/23 @ 12:04 by Cailin Rubio CMA) Hx of laparoscopic partial gastrectomy Hx of esophagogastroduodenoscopy (05/15/23) Hx of section Family History Paternal Uncle Cancer of pancreas Paternal Aunt Breast cancer Social History Household Members: Spouse Housing: Apartment Are you a primary transitional care nurse to a significant other at home: Yes (children, supportive ) Do you presently have visiting nurse or other home services: No Alcohol intake: current Alcohol intake frequency: does not drink Alcohol type: wine and other Patient Tobacco Use Status: Never used Tobacco Substance Use Type: Marijuana Current occupational status: employed Telehealth Telehealth Telehealth Platform: Telephone Location of provider rendering services: practice address Location of patient: address on file Patient Identification confirmed using: Name, : Yes Telehealth method: voice only Patient verbally consented to treatment: Yes Patient verbally consented to billing insurance company: Yes Patient informed of any privacy concerns related to visit: Yes Minutes spent on Phone/Video with Pt.: 16 Assessment & Plan Assessment & Plan (1) S/P laparoscopic sleeve gastrectomy: Code(s): Z98.84 - Bariatric surgery status Category: Surgical (2) Overweight: Code(s): E66.3 - Overweight Category: Medical Plan New meal plan: 1 shake with 2 scoops Rebuild 1 Fitcrunch, Atkins, or Celebrate bar 1 GY or CC 1 meal 4f/4f Encouraged pt to restart exercise regularly, aim for 3x/week 30 min to start. Labs recently done, reviewed, some vitamin levels still pending. RTC 2-3 months, pt will text me between appts with any concerns.
[2024-08-10 12:42] VITALS: BMI 27.1
--- OUTSIDE RECORDS SUMMARY | 2024-08-10 15:36 | XMS_ITS | Clinical Summary ---
Author Organization [place] [address] Deborah [facility] Building Address [address] [place] [address] Phone Care Team Providers Care Biology Lecturer Name Role Phone Zabrina Kaur NP Primary Care Provider [phone] Allergies No known active allergies Medications methotrexate [...] was 3.8. 07/04/2007: PIH labs normal at [facility]; uric acid was 4.8 07/06/2007: PIH labs normal at [facility]; uric acid was 4.7 07/10/2007: Labetalol 300 [...] 07/14/2024 Telephone Obstetrics [facility]necology - [facility] [address] [place] [phone] Vannessa Young CNM 07/13/2024 3:42 PM EDT - 07/13/2024 11:59 PM EDT [facility] at [address] [phone] Discharge Disposition: Home or Self Care 07/10/2024 [facility] [address] Vannessa Young CNM Results 07/03/2024 2:30 PM EST Office Visit Obstetrics and Gynecology - [address] [address] Vannessa Young CNM Encounter for gynecological examination [...] Livin g Ernie Chato nne [place] Delivery Location:[facility] 2012 Term F CS-Uns pec Last Filed [...] age to complete this topic Meningococcal B Vaccine Aged Out No l onger eligible based on patient's age to complete [...] year. Mammography location: [facility] at [address], [address] -------- FINAL REPORT -------- Dictated By: Jerry Umaña Dictated Date: 07/13/2024 16:51 ET Assigned Physician: Jerry Umaña Reviewed and Electronically Signed By: Jerry Umaña Signed Date: 07/13/2024 16:57 ET Workstation ID: [id number] Transcribed By: Self Edit Transcribed Date: 07/13/2024 [...] year. Mammography location: [facility] [address], [address] -------- FINAL REPORT -------- Dictated By: Jerry Umaña Dictated Date: 07/13/2024 16:51 ET Assigned Physician: Jerry Umaña Reviewed and Electronically Signed By: Jerry Umaña Signed Date: 07/13/2024 16:57 ET Workstation ID: [id number] Transcribed By: Self Edit Transcribed Date: 07/13/2024 16:51 ET Vannessa KENNEDY IMG BI PROCEDURES Final Res ult * HIV 1 molecular study quantitative (07/10/2024 3:28 PM EST) [facility] HIV-1 RNA Interpretation Not Detected Not Detected LAB MOLECULAR DIAGNOSTICS METHOD 07/14/2024 12:53 PM EDT [facility] Comment:HIV RNA not detected , unable to report quantitative results. Blood Venous blood specimen / Unknown Venipuncture / Unknown 07/10/2024 3:28 PM EST 07/10/2024 3:28 PM EST [facility] LAB BLOOD ORDERABLES Final Result Performing Organization Address City/[facility]/ZIP Co de Phone Number [facility] [address] [place] [address], [place] [phone] * Hepatitis C antibody (07/03/2024 2:55 PM EST) [facility] Hepatitis C Antibody Negative Negative LAB CHEMISTRY METHOD 07/03/2024 8:28 PM EST [facility] Blood Venous blood specimen / Unknown Venipuncture / Unknown 07/03/2024 2:55 PM EST 07/03/2024 2:55 PM EST [facility] LAB BLOOD ORDERABLES Final Result Performing Organization Address [facility]/ZIP Co de Phone Number [facility] [address] [place] [address], [place] [phone] * (ABNORMAL) HIV 1,2 antibody, p24 antigen with reflex to differentiation (07/03/2024 2:55 PM EST) [facility] HIV Combo AB/AG Positive (A) Negative LAB CHEMISTRY METHOD 07/03/2024 9:48 PM EST [facility] Comment: Positive HIV screen has [...] PM EST 07/03/2024 2:55 PM EST Narrative [facility] - 07/03/2024 9:48 PM EST This assay is a 4th generation assay allowing for earlier detection of HIV infection by detecting the presence of the HIV-1 p24 antigen as well as the traditional antibodies to HIV type 1 (including group O) and type 2. ??Use of a 4th generation assay is the current CDC recommendation for HIV screening. [facility] BLOOD ORDERABLES Final Result Performing Organization Address City/[facility]/ZIP Co de Phone Number [facility] [address] [place] [address], [place] [phone] * Treponema pallidum antibody with reflex to RPR and particle agglutination (07/03/2024 2:55 PM EST) Pathologist [facility] T. Pallidum Antibodies Negative Negative LAB CHEMISTRY METHOD 07/03/2024 8:03 PM EST [facility] Blood Venous blood specimen / Unknown Venipuncture / Unknown 07/03/2024 2:55 PM EST 07/03/2024 2:55 PM EST [facility] LAB BLOOD ORDERABLES Final Result Performing Organization Address City/[facility]/ZIP Co de Phone Number [facility] [address] [place] [address], [place] [phone] * HIV 1 HIV 2 supplemental assay (07/03/2024 2:55 PM EST) HIV-1 Ab Differentiation NONREAC NON REAC 07/06/2024 3:06 PM EST [facility] HIV-2 Ab Differentiation NONREAC NON REAC 07/06/2024 3:06 PM EST [facility] Comment: HIV-1 NUCLEIC ACID TESTING ON A REPEAT SAMPLE IS RECOMMENDED. This sample is Negative for both HIV-1 and HIV-2 antibodies by the Bumprnius HIV1/2 Supplemental Assay. Therefore, HIV antibodies were [...] HIV-1 nucleic acid testing. Test performed at [facility], [address] , [place], [place] ??[address] ? [phone] Yuliet Macias MD, PhD - Supervisor [employer] Blood Venous blood specimen / Unknown Venipuncture / Unknown 07/03/2024 2:55 PM EST 07/03/2024 9:48 PM EST Vannessa Young [facility] BLOOD ORDERABLES Final Result [facility] [address] [place] [address] * Chlamydia trachomatis and Neisseria gonorrhoeae molecular study (07/03/2024 2:31 PM EST) [facility] Neisseria gonorrhoeae PCR Negative Negative LAB MOLECULAR DIAGNOSTICS METHOD 07/04/2024 9:19 AM EST [facility] Chlamydia trachomatis PCR Negative Negative LAB MOLECULAR DIAGNOSTICS METHOD 07/04/2024 9:19 AM EST [facility] Swab Vaginal structure / Unknown Non-blood Collection / Unknown 07/03/2024 2:31 PM EST 07/03/2024 2:31 PM EST Vannessa Young [facility] MICROBIOLOGY - GENERAL ORDERABLES Final Result [facility] [address] [place] [address], [place] [phone] * Cervical Cancer Screening: HPV (05/24/2023) [facility] Cervical Cancer Screening: HPV negative, abstracted Historical Provider HEALTH MAINTENANCE Final Result from Last 3 Months or Most Recently Relevant to Health Maintenance Insurance [employer] Care Teams Biology Lecturer Relationship Specialty Start Date End Date Zabrina Kaur NP [address] [place] [address] PCP - General Nurse Practitioner 07/13/24
== END 2024-08-10 13:08 | disposition home or self-care (01) ==
LOC: HO.HBS 13:08
PROVIDERS: PCP Nurse Practitioner Family; Visit Provider Physician Assistant Surgical
DX: E66.3 Overweight (principal); Z68.27 Body mass index [BMI] 27.0-27.9, adult; Z90.3 Acquired absence of stomach [part of]; Z98.84 Bariatric surgery status
CPT/HCPCS: 98012

== ENCOUNTER → 2024-08-10 13:08 | Outpatient (BNVA) | payer OTHER, SELFPAY | PROVIDERS: PCP Nurse Practitioner Family; Visit Provider Physician Assistant Surgical | DX: Z98.84 Bariatric surgery status (principal); E66.3 Overweight ==

== ENCOUNTER 2024-10-12 12:11 | Outpatient (AMB) | payer OTHER, SELFPAY ==
--- NOTE | 2024-10-12 12:03 | MHC.OFFVISWM ---
VS Expanded 10/12/24 12:05 Height 5 ft 3 in Weight 157 lb BMI 27.8 Intake Visit Reasons: TELEPHONE PO LSG 08/06/23 Allergies No Known Allergies Allergy (Verified 08/29/23 12:03) Medication List - Last Reconciled 10/12/24 by LENA Monzon folic acid 1 mg PO DAILY methotrexate sodium 2.5 mg PO QWEEK sertraline 50 mg PO DAILY zinc gluconate 30 mg PO DAILY HPI Comments Details: This?is a?39?yo F who is s/p LSG 08/06/2023. Presents for 16mo post op visit. Weight at last visit on 08/10/2024 was 153.2 pounds with a BMI of 27.1, weight today is 157 pounds, representing a 3.8 pound weight loss with a BMI today of 27.8.? No complaints of nausea, emesis, abdominal pain or reflux, or constipation. She went up to 163lbs in between visits, was able to lose some on her own. Has a lot of food noise . Present meal plan includes: 1 shake with 2 scoops Rebuild 1 Fitcrunch, Atkins, or Celebrate bar 1 GY or CC 1 meal 4f/4f Exercise routine includes: just signed up at [facility], has been going M/W/F [facility] Medical History (Updated 08/10/24 @ 12:59 by LENA Monzon) BMI 37.0-37.9, adult GERD (gastroesophageal reflux disease) Obesity IUD (intrauterine device) in place Rheumatoid arthritis Obstructive sleep apnea on CPAP Anxiety Depression Hypertension Morbid obesity Surgical History (Updated 08/29/23 @ 12:04 by Cailin Rubio CMA) Hx of laparoscopic partial gastrectomy Hx of esophagogastroduodenoscopy (05/15/23) Hx of section Family History Paternal Uncle Cancer of pancreas Paternal Aunt Breast cancer Social History Household Members: Spouse Housing: Apartment Are you a primary healthcare project manager to a significant other at home: Yes (children, supportive ) Do you presently have visiting nurse or other home services: No 75 years or older and lives alone: No Alcohol intake: current Alcohol intake frequency: does not drink Alcohol type: wine and other Patient Tobacco Use Status: Never used Tobacco Substance Use Type: Marijuana Current occupational status: employed Telehealth Telehealth Telehealth Platform: Telephone Location of provider rendering services: other Location of patient: address on file Patient Identification confirmed using: Name, : Yes Telehealth method: voice only Patient verbally consented to treatment: Yes Patient verbally consented to billing insurance company: Yes Patient informed of any privacy concerns related to visit: Yes Minutes spent on Phone/Video with Pt.: 15 Assessment & Plan Assessment & Plan (1) Overweight: Code(s): E66.3 - Overweight Category: Medical (2) S/P laparoscopic sleeve gastrectomy: Code(s): Z98.84 - Bariatric surgery status Category: Surgical Plan Pt interested in meeting with Radha to discuss strategies, was previously diagnosed with binge eating. She feels this will be most helpful for her progress. Will set up appt. Sent healthy foods list; encouraged pt to have additional protein or healthy fruits/veg when she feels truly hungry. RTC early Feb for 18mo visit.
[2024-10-12 12:05] VITALS: BMI 27.8
--- OUTSIDE RECORDS SUMMARY | 2024-10-12 13:53 | XMS_ITS | Clinical Summary ---
Author Organization [place] [address] Deborah [facility] Building Address [address] [place] [address] Phone Care Team Providers Care Excavation Laborer Name Role Phone Zabrina Kaur NP Primary Care Provider [phone] Allergies No known active allergies Medications methotrexate [...] was 3.8. 07/04/2007: PIH labs normal at [facility]; uric acid was 4.8 07/06/2007: PIH labs normal at [facility]; uric acid was 4.7 07/10/2007: Labetalol 300 [...] 07/14/2024 Telephone Obstetrics [facility] Gynecology - [facility] [address] [place] [phone] Vannessa YoungBRENTJosé Miguel 07/13/2024 3:42 PM EDT - 07/13/2024 11:59 PM EDT [facility] [place] [address] [place] [phone] Discharge Disposition: Home or Self Care from Last 3 Months Surgical History Surgery Date Site/Laterality Comments SECTION 2012 PROCEDURE: HISTORICAL DELIVERY OTHER SURGICAL HISTORY PROCEDURE: FL GASTRIC RSTCV W/O BYP VERTICAL-BANDED GASTROPLY Medical [...] Livin g Ernie Chato nne [place] Delivery Location:[facility] 2012 Term F CS-Uns pec Last [...] PM EST False positive serology for HIV HEPATITIS C ANTIBODY Routine 07/03/2024 2:55 PM EST Encounter for screening for viral disease HM HPV Routine 05/24/2023 from Last 3 [...] year. [facility]ammography location[facility] at [address], [address] -------- FINAL REPORT -------- Dictated By: Jerry Umaña Dictated Date: 07/13/2024 16:51 ET Assigned Physician: Jerry Umaña Reviewed and Electronically Signed By: Jerry Umaña Signed Date: 07/13/2024 16:57 ET Workstation ID: [id number] Transcribed By: Self Edit Transcribed Date: 07/13/2024 [...] year. Mammography location: [facility] [address] [place], [address] -------- FINAL REPORT -------- Dictated By: Jerry Umaña Dictated Date: 07/13/2024 16:51 ET Assigned Physician: Jerry Umaña Reviewed and Electronically Signed By: Jerry Umaña Signed Date: 07/13/2024 16:57 ET Workstation ID: [id number] Transcribed By: Self Edit Transcribed Date: 07/13/2024 16:51 ET [facility] IMG BI PROCEDURES Final Res ult * HIV 1 molecular study quantitative (07/10/2024 3:28 PM EST) [facility] HIV-1 RNA Interpretation Not Detected Not Detected LAB MOLECULAR DIAGNOSTICS METHOD 07/14/2024 12:53 PM EDT [facility] Comment:HIV RNA not detected , unable to report quantitative results. Blood Venous blood specimen / Unknown Venipuncture / Unknown 07/10/2024 3:28 PM EST 07/10/2024 3:28 PM EST [facility] LAB BLOOD ORDERABLES Final Result Performing Organization Address [facility]/ZIP Co de Phone Number [facility] [address] [place] [address], [place] [phone] * Hepatitis C antibody (07/03/2024 2:55 PM EST) [facility] Hepatitis C Antibody Negative Negative LAB CHEMISTRY METHOD 07/03/2024 8:28 PM EST [facility] Blood Venous blood specimen / Unknown Venipuncture / Unknown 07/03/2024 2:55 PM EST 07/03/2024 2:55 PM EST [facility] LAB BLOOD ORDERABLES Final Result Performing Organization Address City/[facility]/ZIP Co de Phone Number [facility] [address] [place] [address], [place] [phone] * Cervical Cancer Screening: HPV (05/24/2023) Cervical Cancer Screening: HPV negative, abstracted us Historical Provider MD HEALTH MAINTENANCE Final Result from Last 3 Months or Most Recently Relevant to Health Maintenance Insurance [facility] Care Teams Excavation Laborer Relationship Specialty Start Date End Date Zabrina Kaur NP [facility] [place] [address] PCP - General Nurse Practitioner 07/13/24
== END 2024-10-12 12:16 | disposition home or self-care (01) ==
LOC: HO.HBS 12:11
PROVIDERS: PCP Nurse Practitioner Family; Visit Provider Physician Assistant Surgical
DX: E66.3 Overweight (principal); Z68.27 Body mass index [BMI] 27.0-27.9, adult; Z90.3 Acquired absence of stomach [part of]; Z98.84 Bariatric surgery status
CPT/HCPCS: 98012

== ENCOUNTER 2024-11-13 09:51 | Outpatient (AMB) | payer OTHER, SELFPAY ==
--- NOTE | 2024-11-13 10:00 | A.OFFWM_ITS ---
Intake Intake Visit Reasons: OV PO LSG 08/06/23 Allergies No Known Allergies Allergy (Verified 08/29/23 12:03) PFSH Medical History (Updated 08/10/24 @ 12:59 by LENA Monzon) BMI 37.0-37.9, adult GERD (gastroesophageal reflux disease) Obesity IUD (intrauterine device) in place Rheumatoid arthritis Obstructive sleep apnea on CPAP Anxiety Depression Hypertension Morbid obesity Surgical History (Updated 11/13/24 @ 14:48 by Radha Sargent [facility]) Hx of laparoscopic partial gastrectomy Hx of esophagogastroduodenoscopy (05/15/23) Hx of section Family History Paternal Uncle Cancer of pancreas Paternal Aunt Breast cancer Social History Household Members: Spouse Housing: Apartment 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 you a primary child care center 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- provider (Adore Adler) during their last appointment on 10/12/2024. The patient reports increased stress related to family dynamics and financial issues, which has led to emotional eating. Upon further exploration, it was revealed that the patient has been skipping meals or lacking consistency in her eating habits after work, opting for snacks instead of dinner. Additionally, her physical activity has decreased, and she is no longer attending the gym. The patient acknowledges a history of emotional eating and notes that during times of stress, eating what she likes provides a sense of control. Today's session focused on assessment and identifying needs to develop a treatment plan at the next visit. The PHQ-9 was administered, indicating some active symptoms of depression, which are attributed to current family concerns. The patient agreed to meet every 2-4 weeks in person. Presenting Concerns Referral Source P- Provider. Barbara Nicole Reason for referral To obtain behavioral health support for the patient following post-operative weight loss surgery over a year ago. Precipitating Event Noticing a reverting back to old habits. Living Situation Current Living Situation Rent At risk of losing current housing? No Satisfied with current living situation? Yes Comments Pt lives with her and two children ages 17, and 12. Food/Weight/Diet Expectations of change PT reports she was around 208Lbs before weight-loss surgery. Lowest: 153Lbs, Current: 156Lbs and her Target weight is: 140Lbs PT is implementing the following: Current meal plan: was given one recently Exercise plan: none as before. History/Relationship with food Example of meals:: Breakfast: shake (8oz almond milk + 2 scoops protein powder) Lunch: 11-1 pm, protein bar. Dinner: None - snacking after. Snacks: Drinks/Liquids: Pre-surgery: Pt reported that she often uses food as an emotional coping mechanism. Currently is using a journal to wrote down her thoughts instead of turning to food. She would often eat tacos, pizza, anything with cheese, fast food, soda drinker, would often eat large quantities even when not hungry, loss of control, feelings of guilt, also eats fast and alone. History/Relationship with weight Pt reported she has been struggling with her weight for most of her life. She was around 260lbs at her heaviest after she had her son. She was around 180lbs about 14 years ago. After stressful situation she stopped doing weight watchers. History/Relationship with dieting Pre-op: [facility] and lost 60lbs or so. counting calories, [place], [facility], and was diagnosed with Binge Eating Disorder. [facility] on 08/06/2023 - Dr Ruiz Been on and off program meal plan. Binge Eating Do you frequently eat large amounts of food in short periods of time, not feeling physically hungry? Yes Do you feel out of control when you eat a large amount of food in a short period of time? Yes Do you eat large amounts of food rapidly and typically alone? Yes Night Eating Do you wake up at least once during the night to eat? No If you wake up in the night, do you find that it is necessary to eat something in order to fall back asleep? No Do you have little or no appetite in the morning and feel very hungry in the evening, often overeating between dinner and when you go to bed? No Social History Family history and relationship PT is 19 years ago. They have 2 children. She has 2 siblings. Paents are alive. Good relationship with mom and siblings. Parental/Familial mapping technician obligations 2 children. Developmental history and status no issues known Social support , mom, sister, daughter. Community support None. PT advised joining the Facebook group and attending the peer support group. Druze/Spirituality None. Cultural/Ethnic information Mixed. + Legal Involvement and History Current or historical involvement with the legal system? none Education Highest grade completed 11th grade, GED, and hair school Preferred learning style Auditory, Verbal, Written, Learn by doing and Visual Currently enrolled in educational program? No Interested in further educational program? 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 ) Wants help to find employment? No Meaningful activities Scroll on [employer]. Listening to a podcast, reading. Financial Situation Describe current financial situation Comfortable and Occasional struggle Financial assistance? None Service Service? No Mental Health and Addiction Treatment Current/Past substance abuse? No Comments Alcohol: 1x month, 2-3 drinks. Cigarettes/Tobacco: uses a nicotine Vape - 1 last 2 weeks. Cannabis/Edibles: 1 edible - 3x month. Current/Past addictive behavior concerns? No Psychiatric history PCP diagnosed her with depression and anxiety in 2018 and was getting prescribed Sertraline. Currently not taking sertraline for over a year. Never hospitalized or in crisis for . Denies any safety concerns. Medical and Physical Health Summary Additional Medical History not covered in history None aditional Sexual History concerns None reported Physical exam in the last year? No Pain Screening Current pain? No Pain in the last few months? Yes Medications Is the patient compliant with medications? Yes (Not taking Sertraline.) Does the patient have Richardson Guardian in place? Not applicable Does the patient use complimentary health approaches? No Trauma/Abuse History History of trauma? No Questionnaires PHQ-9 Over the last 2 weeks, how often have you been bothered by any of the following problems? 1. Little interest or pleasure in doing things: not at all 2. Feeling down, depressed, or hopeless: several days 3. Trouble falling or staying asleep, or sleeping too much: not at all 4. Feeling tired or having little energy: several days 5. Poor appetite or overeating: more than half the days (overeating) 6. Feeling bad about yourself - or that you are a failure or have let yourself or your family down: several days 7. Trouble concentrating on things, such as reading the newspaper or watching television: not at all 8. Moving or speaking so slowly that other people could have noticed. Or the opposite - being so fidgety or restless that you have been moving around a lot more than usual: not at all 9. Thoughts that you would be better off or of hurting yourself in some way: not at all Total score: 5 Depression Screening Interpretation: Positive Depression Screening Done: Yes 88858 - PHQ-9 Billing: Yes Source: Developed by Drs. Brenton Santillan, Fidelia Abernathy, Korey Campuzano and colleagues, with an educational gabriel from [employer]. Assessment & Plan Assessment & Plan (1) Adjustment disorder: Code(s): F43.20 - Adjustment disorder, unspecified Qualifiers: Adjustment disorder type: unspecified type Qualified Code(s): F43.20 - Adjustment disorder, unspecified (2) Status post bariatric surgery: Code(s): Z98.84 - Bariatric surgery status Plan The patient was provided with information to join a Facebook support group and upcoming peer support meetings, as these resources could be beneficial for her. Additionally, she was given access to the RightI website to support the guidance from her P provider in structuring her meals. She was advised to start considering a behavioral plan to incorporate physical activity into her routine. Psychoeducation was provided regarding the cycle of emotional eating and its triggers, while her feelings were validated and normalized. Supportive coping skills were offered to address her main concerns. The patient expressed a preference for in-person sessions and will return in 4 weeks. * Next Appointment:?12/11/2024 at 10:00 AM, in person. Coding Level of Care Code New Pt Psy Diag Eval (03380) Patient Type New Diagnoses Adjustment disorder, unspecified type F43.20 Adjustment disorder type: unspecified type Status post bariatric surgery Z98.84 Additional Codes PHQ-9 - 30927 - PHQ-9 Billing: Yes ([id number]) Time Spent (min) 60
--- OUTSIDE RECORDS SUMMARY | 2024-11-13 10:13 | XMS_ITS | Clinical Summary ---
Author Organization [place] [id number] [address] [facility] Building Address [address] [place] [address] Phone Care Team Providers Care Imaging Aide Name Role Phone Zabrina Kaur NP Primary Care Provider [phone] Allergies No known active allergies Medications methotrexate [...] was 3.8. 07/04/2007: [facility] labs normal at [facility]; uric acid was 4.8 07/06/2007: [facility] labs normal at [facility]; uric acid was 4.7 07/10/2007: [...] a blood pressure check. ANDRZEJ GRACE MD Surgical History Surgery Date Site/Laterality Comments SECTION 2012 PROCEDURE: HISTORICAL DELIVERY OTHER SURGICAL HISTORY PROCEDURE: [place] GASTRIC RSTCV W/O BYP VERTICAL-BANDED GASTROPLY Medical [...] Livin g Ernie Chato nne [place] Delivery Location:[facility] 2012 Term F CS-Uns pec [...] 5 Years) and At-Risk Patients (6 to 49 Years) (1 of 2 - PCV) 2004 Cholesterol Screening (Lipid Panel) 11/26/2023 Depression Screening 11/26/2023 Hypertension/CHF/CAD Annual BMP Blood Test 11/26/2023 Social Influencers of Health Screening 11/26/2023 COVID-19 Vaccine ( season) 2024 01/23/2021, 07/29/2020, 07/06/2020 Influenza Vaccine (#1) 2025 , 12/25/2021, 01/23/2021, Additional history exists Cervical Cancer [...] Procedure Name Priority Date/Time Associated Diagnosis Comments HIV 1 MOLECULAR STUDY QUANTITATIVE Routine 07/10/2024 3:28 PM EST False positive serology for HIV HEPATITIS C ANTIBODY Routine 07/03/2024 2:55 PM EST Encounter for screening for viral disease HM HPV Routine 05/24/2023 from Last 3 Months or Most Recently Relevant to Health Maintenance Results * HIV 1 molecular study quantitative (07/10/2024 3:28 PM EST) [facility] HIV-1 RNA Interpretation Not Detected Not Detected LAB MOLECULAR DIAGNOSTICS METHOD 07/14/2024 12:53 PM EDT [facility] Comment:HIV RNA not detected , unable to report quantitative results. Blood Venous blood specimen / Unknown Venipuncture / Unknown 07/10/2024 3:28 PM EST 07/10/2024 3:28 PM EST [facility] B[facility]OD ORDER[facility] Final Result Performing Organization Address [facility]/ZIP Co de Phone Number [facility] [address] [place] [address], [place] [phone] * Hepatitis C antibody (07/03/2024 2:55 PM EST) [facility] Hepatitis C Antibody Negative Negative LAB CHEMISTRY METHOD 07/03/2024 8:28 PM EST [facility] Blood Venous blood specimen / Unknown Venipuncture / Unknown 07/03/2024 2:55 PM EST 07/03/2024 2:55 PM EST Vannessa Young [facility] BLOOD ORDERABLES Final Result [facility] [address] [place] [address], [place] [phone] * Cervical Cancer Screening: HPV (05/24/2023) [facility] Cervical Cancer Screening: HPV negative, abstracted us Historical Provider MD HEALTH MAINTENANCE Final Result from Last 3 Months or Most Recently Relevant to Health Maintenance Insurance [employer] Care Teams Imaging Aide Relationship Specialty Start Date End Date Zabrina Kaur NP [facility] [place] [id number] PCP - General Nurse Practitioner 07/13/24
== END 2024-11-13 11:11 | disposition home or self-care (01) ==
LOC: HO.HBST 09:51
PROVIDERS: PCP Nurse Practitioner Family; Visit Provider Counselor Mental Health
DX: F43.20 Adjustment disorder, unspecified (principal); Z98.84 Bariatric surgery status
CPT/HCPCS: 90791